=== PATIENT | male | born 1995 | race Caucasian/White ===

== ENCOUNTER → 2019-02-18 08:01 | Outpatient (CLI) | payer OTHER, MEDICAID, SELFPAY ==
[2019-02-18 08:55] LABS: Add Manual Diff / Slide Review NO; Basophils Absolute Auto 0 /uL (0-100); Basophils Percent Auto 0.6 % (0-2); Eosinophils Absolute Auto 200 /uL (0-450); Eosinophils Percent Auto 2.6 % (2-4); Hematocrit 42.4 % (41-53); Hemoglobin 14.7 g/dL (13.5-17.5); Lymphocytes Absolute Auto 3000 /uL (1100-4500); Lymphocytes Percent Auto 48.8 % (25-40); Mean Corpuscular HGB Conc 34.6 % (30-36); Mean Corpuscular Volume 86.6 fL (80-100); Monocytes Absolute Auto 500 /uL (0-900); Neutrophils Absolute Auto 2400 /uL (1500-7000); Platelet Count 296 X10^3/uL (150-400); Red Cell Distribution Width 12.7 % (11.6-14.8); White Blood Cell Count 6.1 X10^3/uL (4.5-11.0)
[2019-02-18 09:05] LABS: Alanine Aminotransferase 18 IU/L (21-72); Albumin 4.4 g/dL (3.5-5.0); Albumin Globulin Ratio 1.6 (1.0-2.8); Alkaline Phosphatase 62 U/L (38-126); Aspartate Aminotransferase 20 IU/L (17-59); BUN Creatinine Ratio 18.6 (6-22); Bilirubin Total 0.3 mg/dL (0.2-1.3); Blood Urea Nitrogen 13 mg/dL (9-20); Carbon Dioxide 29 mmol/L (22-32); Chloride 101 mmol/L (98-107); Cholesterol 184 mg/dL (140-199); Estimated Glomerular Filt Rate > 60.0 mL/min (>60); Globulin 2.7 g/dL (1.7-4.1); Glucose 92 mg/dL (70-100); HDL Cholesterol 41 mg/dL (40-60); HEMOLYSIS < 15 (0-50); LDL Cholesterol Calculated 113 mg/dL (<100); Potassium 4.6 mmol/L (3.4-5.1); Sodium 138 mmol/L (137-145); Total Protein 7.1 g/dL (6.3-8.2); Triglycerides 150 mg/dL (35-150)
[2019-02-18 09:48] LABS: TSH w/ Reflex to FT4 3.16 uIU/mL (0.47-4.68)
== END ==
PROVIDERS: PCP Nurse Practitioner; Visit Provider Nurse Practitioner
DX: Z01.89 Encounter for other specified special examinations (principal)
CPT/HCPCS: 36415; 80053; 80061; 84443; 85025

== ENCOUNTER → 2019-03-25 11:04 | Outpatient (CLI) | payer OTHER, MEDICAID, SELFPAY ==
--- NOTE | 2019-03-25 11:08 | DI.RAD.S_ITS ---
PROCEDURE: XR HIP W PEL IF DONE RT 2V INDICATIONS: hip pain TECHNIQUE: AP pelvis with lateral view(s) of the right hip(s). COMPARISON: None. FINDINGS: Bones: No fractures or dislocations. Pelvic ring appears intact. No suspicious bony lesions. Soft tissues: The visualized bowel gas pattern is normal. No suspicious soft tissue calcifications. IMPRESSION: No acute radiographic findings. If pain persists, further characterization with cross-sectional imaging such as CT or MRI could be used. Dictated by: Coretta Malagon M.D. on 03/25/2019 at 11:50 Approved by: Coretta Malagon M.D. on 03/25/2019 at 11:50
== END ==
LOC: LAB 11:07 → RAD 13:25 → LAB 13:28
PROVIDERS: PCP Nurse Practitioner; Visit Provider Nurse Practitioner
DX: G89.29 Other chronic pain (principal); M25.551 Pain in right hip
CPT/HCPCS: 73502

== ENCOUNTER → 2019-04-04 16:49 | Outpatient (CLI) | payer OTHER, MEDICAID, SELFPAY ==
--- NOTE | 2019-04-04 16:52 | DI.RAD.S_ITS ---
PROCEDURE: XR WRIST LT MIN 3V INDICATIONS: history of left wrist fracture TECHNIQUE: 4 views of the wrist were acquired. COMPARISON: None. FINDINGS: Bones: No fractures or dislocations. No suspicious bony lesions. There is mild sclerosis in the distal radius which could represent radiographic healing. Scaphoid view: No definite fracture seen. Soft tissues: No suspicious soft tissue calcifications. IMPRESSION: Focal sclerosis seen in the distal radius may represent radiographic healing. Elsewhere, no definite or displaced fracture radiographically identified, although if there are prior comparison studies, these would be helpful if obtainable. Dictated by: Carl Melendez M.D. on 04/05/2019 at 11:38 Approved by: Carl Melendez M.D. on 04/05/2019 at 11:40
--- NOTE | 2019-04-04 16:52 | DI.RAD.S_ITS ---
PROCEDURE: XR ANKLE RT MIN 3V INDICATIONS: history of right ankle fracture TECHNIQUE: 3 views of the ankle were acquired. COMPARISON: [facility], , ANKLE 3 VIEWS RIGHT, 11/03/2013, 13:27. FINDINGS: Bones: No acute fractures or dislocations. Ankle mortise is normally aligned. No suspicious bony lesions. Chronic corticated ossicle projects adjacent to the medial malleolar tip. There is also chronic appearing probable remote fracture fragment or dystrophic calcification projecting dorsal to the talar head. Soft tissues: No tibiotalar joint effusion. Achilles tendon appears normal. IMPRESSION: Corticated ossicle projecting adjacent to the medial malleolar tip probably remote fracture fragment. Additional sub-5 mm presumed avulsion fracture fragment projecting dorsal to the distal talus. This also appears chronic If the patient's pain or other symptoms persist, consider further evaluation with MRI Dictated by: Carl Melendez M.D. on 04/05/2019 at 11:23 Approved by: Carl Melendez M.D. on 04/05/2019 at 11:25
== END ==
PROVIDERS: PCP Nurse Practitioner; Visit Provider Nurse Practitioner
DX: Z87.81 Personal history of (healed) traumatic fracture (principal)
CPT/HCPCS: 73110; 73610

== ENCOUNTER 2019-04-19 17:30 | Outpatient (RCR) | payer OTHER, MEDICAID, SELFPAY ==
--- NOTE | 2019-02-27 14:00 | PT.OIE ---
Current Diagnoses Pain in left wrist (02/27/19) Pain in right hip (02/27/19) Pain in right ankle and joints of right foot (02/27/19) Stiffness of left wrist, not elsewhere classified (02/27/19) Stiffness of right ankle, not elsewhere classified (02/27/19) Muscle weakness (generalized) (02/27/19) Other abnormalities of gait and mobility (02/27/19) Provider Visit Care Team Role Provider Type LOW Resendiz Attending Provider Advanced Entry Tech Primary Care Provider Specialty: [facility] Address: [address] [place] [address] Email: Physical Therapy Initial Evaluation PT-OP-A Visit Information Start: 02/27/19 10:33 Freq: Status: Active Protocol: Document 02/27/19 09:45 DCW (Rec: 02/27/19 11:13 DCW [id number]) Out-Patient Physical Therapy Visit Information Visit Information Visit Type Initial Evaluation Visit Start Time 09:45 Visit Stop Time 10:30 Total Visit Minutes 45 Visit Number 1 Number of CLEAN UP SUPERVISOR Visits 0 Evaluation Information Evaluation Date 02/27/19 PT-OP-B Current Condition Start: 02/27/19 10:33 Freq: Status: Active Protocol: Document 02/27/19 09:45 DCW (Rec: 02/27/19 14:00 DCW [id number]) Current Condition History of Current Condition Onset Date Long-standing history Current Complaints L wrist pain, R ankle pain, R hip pain History of Current Condition Pt is a 23 year old male presenting with a complicated injury history at multiple sites. Pt has broken his left wrist 5-6 times, the most recent being three years ago. Pt notes most of his injuries occurred during sports like skateboarding and snowboarding . Pt notes that he now has pain in his wrst at end-range flexion or extension, and he is unable to put weight through his left arm, which makes him unable to perform a push-up, and he has difficulty with many yoga poses. Additionally, approximately six years ago, pt fractured a metatarsal in his right foot. 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 Pt notes that then prior to leaving [place], he got a small cut on his heel, which then led to a MRSA infection, which also adds to his ankle and foot pain. Pt notes that his ankle limits his ability to perform any sort of backflips, which he used to do for fun, and limits his jogging to less than one mile. His ankle pain has also led to hip pain, as he feels his gait pattern has changed, resulting in compensatory hip movements. Treatment Goals Patient/Caregiver Goals Pt would like to retun to pain -free activities, such as yoga , jogging, push-ups, and back- flips. Prior Functional Status Baseline Function- ADL's Independent Baseline Function- Mobility Independent PT-OP-C Subjective Start: 02/27/19 10:33 Freq: Status: Active Protocol: Document 02/27/19 09:45 DCW (Rec: 02/27/19 11:13 DCW [id number]) OP-PT Subjective Patient Comments Patient Comments All these injuries are just making me feel older than what I should. Patient Reported Progress Worse OP-PT Pain Assessment Pain Assessment Grid Paper Pain Assessment Grid Completed Yes Location Right Lateral Hip Intensity 6 Scale Used Numeric (1 - 10) Pain Aggravating Factors Exercise Walking Right Ankle Intensity 6 Scale Used Numeric (1 - 10) Description Aching Throbbing Pain Aggravating Factors Exercise Walking Left wrist Intensity 5 Scale Used Numeric (1 - 10) Description Chronic Tightness Throbbing Other Pain Aggravating Factors Weight-bearing through UE PT-OP-F Manual Assessment Start: 02/27/19 10:33 Freq: Status: Active Protocol: Document 02/27/19 09:45 DCW (Rec: 02/27/19 11:13 DCW [id number]) Manual Assessments Soft Tissue Assessment Soft Tissue Mobility Assessment Moderate tightness right lateral gastroc, Severe tightness R ITB Joint Mobility Assessment Joint Mobility Assessment Tenderness to palpation along left wrist, specifically dorsal surface of lunate, as well as pain with weight- bearing through left hand PT-OP-G Mobility & Gait Start: 02/27/19 10:33 Freq: Status: Active Protocol: Document 02/27/19 09:45 DCW (Rec: 02/27/19 11:13 DCW [id number]) OP Gait Assessment Gait Gait Assistance Required: Independent Assistive Devices Assistive Device None Factors Limiting Gait Function Factors Limiting Gait Function Abnormal Tonal Influences Decreased Strength Comments Gait Comments Pt ambulates with 30? right toe out secondary to overall R hip weakness, with exception of external rotators, as well as difficulty with R foot clearance secondary to limitations with dorsiflexion PT-OP-J Posture/Palpation/Skin Start: 02/27/19 10:33 Freq: Status: Active Protocol: Document 02/27/19 09:45 DCW (Rec: 02/27/19 11:13 DCW [id number]) Palpation Assessment Location Two Palpation Location Right Lateral Gastroc Palpation Findings Soft Tissue Tightness Spasm Muscle Guarding Tenderness Trigger Point One Palpation Location Right ITB Palpation Findings Soft Tissue Tightness Muscle Guarding Tenderness Trigger Point PT-OP-K Range of Motion Start: 02/27/19 10:33 Freq: Status: Active Protocol: Document 02/27/19 09:45 DCW (Rec: 02/27/19 11:13 DCW [id number]) Wrist Goniometric Range of Motion Wrist Left Flexion Active (degrees) 70 Extension Active (degrees) 65 Ulnar Deviation Active (degrees) 25 Radial Deviation Active (degrees) 13 ROM Limitations Wrist Limitations of Range of Motion Bony Restriction Comments Pain with end-range flexion and extension Hip Goniometric Range of Motion Hip Bilateral Hip ROM WFL Yes Knee Goniometric Range of Motion Knee Bilateral Knee ROM WFL Yes Ankle and Foot Goniometric Range of Motion Ankle and Foot Right Active Testing Position Sitting Plantarflexion 48 Inversion 40 Eversion 10 Left Active Ankle/Foot ROM WFL Yes Testing Position Sitting Dorsiflexion with Knee Flexed 10 Plantarflexion 60 Inversion 50 Eversion 23 Ankle and Foot ROM Limitations Comments R AROM DF /c knee bent: -5?; PROM 15? PT-OP-L Special Tests Start: 02/27/19 10:33 Freq: Status: Active Protocol: Document 02/27/19 09:45 DCW (Rec: 02/27/19 11:13 DCW [id number]) Special Tests Hip Special Tests Amandeep Test Results J-sign R ANA M Test Results Negative Scour Test Test Results Negative Knee Special Tests Rudolph's Test Test Results Strongly positive R Foot/Ankle Special Tests Anterior Draw Test Results Positive R PT-OP-M Strength Start: 02/27/19 10:33 Freq: Status: Active Protocol: Document 02/27/19 09:45 DCW (Rec: 02/27/19 11:13 DCW [id number]) Wrist Strength Wrist Manual Muscle Testing Left Flexion (C7) 4+ Good+ Extension (C6) 4+ Good+ Ulnar Deviation 4 Good Radial Deviation 4 Good Hip Strength Hip Manual Muscle Testing Right Flexion (L2) 4- Good- Abduction 4- Good- Adduction 4- Good- External Rotation 4+ Good+ Internal Rotation 4- Good- Left Flexion (L2) 4+ Good+ Extension (S1) 4+ Good+ Abduction 4+ Good+ Adduction 4+ Good+ External Rotation 4+ Good+ Internal Rotation 4+ Good+ Knee Strength Knee Manual Muscle Testing Bilateral Flexion (S2) 4+ Good+ Extension (L3) 4+ Good+ Ankle/Foot Strength Ankle and Foot Manual Muscle Testing Bilateral Dorsiflexion (L4) 4+ Good+ Plantarflexion (S1) 4+ Good+ Inversion 4+ Good+ Eversion (S1) 4+ Good+ PT-OP-T Assessment and Plan Start: 02/27/19 10:33 Freq: Status: Active Protocol: Document 02/27/19 09:45 DCW (Rec: 02/27/19 11:13 DCW [id number]) Physical Therapy Assessment Rehab Potential Rehabilitation Potential Good Evaluation Complexity Number of Personal Factors/Comorbidities 3 or More Number of Body Systems Impaired 4 or More Clinical Presentation at Evaluation Evolving Impairments Impairments Functional Activities Functional Mobility Gait Pain ROM Soft Tissue Mobility Strength Tone Goals Five Impairment Limited ankle ROM Night Auditor Goal (LTG) Pt to increased right Dorsiflexion from lacking 5? from neutral to 10? to improve quality of swing phase of gait LTG Duration 04/29/19 Four Impairment Right hip weakness Half-Way Goal (LTG) Pt right hip MMT to at least 4 +/5 LTG Duration 04/29/19 Three Impairment Pt unable to jog more than one mile due to hip pain STG Duration 03/29/19 Night Auditor Goal (LTG) Pt to jog three miles with no increased hip pain LTG Duration 04/29/19 Two Impairment Pt unable to bear weight through his left wrist Short Term Goal (STG) Pt to tolerate five push-ups without increased wrist pain STG Duration 03/29/19 Half-Way Goal (LTG) Pt to participate in a full yoga session without being limited by his wrist LTG Duration 04/29/19 One Impairment Pt does not have an appropriate home exercise program Short Term Goal (STG) Pt to be independent and complaint with an appropriate HEP STG Duration 03/29/19 Assessment Summary Assessment Pt presents with a multitude of complaints from various orthopedic injuries in hi past . Pt's left wrist has limited ROM and causes pain with and weight-bearing activities, his right ankle displays increased laxity in his ATF ligament and limited ROM. Pt's right hip is substantially weaker than his left, resulting in increased right toe-out, and a tight ITB is causing increased pain with palpation and popping during ambulation. Pt overall is a very active individual, and his injuries are limiting his participation in his normal activities, such has skateboarding, snowboarding, yoga, and jogging. Pt should benefit from skilled therapy focusing on improving hip strength, ankle ROM, wrist mobility, decreasing ITB tightness, improving gait pattern, and decreasing pain with UE weight bearing. With pt's right ankle laxity, if he does not respond well to skilled PT, he may benefit from an MRI in the future to assess integrity of his R ATF ligament Physical Therapy Plan Frequency and Duration Frequency of Treatment 2x/Week Duration of Treatment 10 weeks Plan of Care Start Date 02/27/19 Plan of Care End Date 05/08/19 Therapeutic Interventions Therapeutic Interventions Aquatic Therapy Balance Training Gait Training Home Exercise Program Joint Mobilizations Modalities Cold Pack/Ice Massage Electric Stimulation Hot Packs Ultrasound Next Visit Focus/Plan Next Note Type Treatment Note Next Visit Plan Hip strengthening, ankle ROM, wrist ROM, STM to R gastroc
--- NOTE | 2019-03-01 10:29 | PT.OTN ---
Current Diagnoses Pain in left wrist (03/01/19) Pain in right hip (03/01/19) Pain in right ankle and joints of right foot (03/01/19) Stiffness of left wrist, not elsewhere classified (03/01/19) Stiffness of right ankle, not elsewhere classified (03/01/19) Muscle weakness (generalized) (03/01/19) Other abnormalities of gait and mobility (03/01/19) Physical Therapy Treatment Note PT-OP-A Visit Information Start: 02/27/19 10:33 Freq: Status: Active Protocol: Document 03/01/19 09:45 DCW (Rec: 03/01/19 10:29 DCW [id number]) Out-Patient Physical Therapy Visit Information Visit Information Visit Type Treatment Note Visit Start Time 09:45 Visit Stop Time 10:30 Total Visit Minutes 45 Visit Number 2 Number of INJECTION MOLDING OPERATOR Visits 0 Evaluation Information Evaluation Date 02/27/19 PT-OP-B Current Condition Start: 02/27/19 10:33 Freq: Status: Active Protocol: Document 02/27/19 09:45 DCW (Rec: 02/27/19 14:00 DCW [id number]) Current Condition History of Current Condition Onset Date Long-standing history Current Complaints L wrist pain, R ankle pain, R hip pain History of Current Condition Pt is a 23 year old male presenting with a complicated injury history at multiple sites. Pt has broken his left wrist 5-6 times, the most recent being three years ago. Pt notes most of his injuries occurred during sports like skateboarding and snowboarding . Pt notes that he now has pain in his wrst at end-range flexion or extension, and he is unable to put weight through his left arm, which makes him unable to perform a push-up, and he has difficulty with many yoga poses. Additionally, approximately six years ago, pt fractured a metatarsal in his right foot. 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 Pt notes that then prior to leaving [place], he got a small cut on his heel, which then led to a MRSA infection, which also adds to his ankle and foot pain. Pt notes that his ankle limits his ability to perform any sort of backflips, which he used to do for fun, and limits his jogging to less than one mile. His ankle pain has also led to hip pain, as he feels his gait pattern has changed, resulting in compensatory hip movements. Treatment Goals Patient/Caregiver Goals Pt would like to retun to pain -free activities, such as yoga , jogging, push-ups, and back- flips. Prior Functional Status Baseline Function- ADL's Independent Baseline Function- Mobility Independent PT-OP-C Subjective Start: 02/27/19 10:33 Freq: Status: Active Protocol: Document 03/01/19 09:45 DCW (Rec: 03/01/19 10:29 DCW [id number]) OP-PT Subjective Patient Comments Patient Comments Pt notes he is a little sore today following hiking yesterday. PT-OP-F Manual Assessment Start: 02/27/19 10:33 Freq: Status: Active Protocol: Document 02/27/19 09:45 DCW (Rec: 02/27/19 11:13 DCW [id number]) Manual Assessments Soft Tissue Assessment Soft Tissue Mobility Assessment Moderate tightness right lateral gastroc, Severe tightness R ITB Joint Mobility Assessment Joint Mobility Assessment Tenderness to palpation along left wrist, specifically dorsal surface of lunate, as well as pain with weight- bearing through left hand PT-OP-G Mobility & Gait Start: 02/27/19 10:33 Freq: Status: Active Protocol: Document 02/27/19 09:45 DCW (Rec: 02/27/19 11:13 DCW [id number]) OP Gait Assessment Gait Gait Assistance Required: Independent Assistive Devices Assistive Device None Factors Limiting Gait Function Factors Limiting Gait Function Abnormal Tonal Influences Decreased Strength Comments Gait Comments Pt ambulates with 30? right toe out secondary to overall R hip weakness, with exception of external rotators, as well as difficulty with R foot clearance secondary to limitations with dorsiflexion PT-OP-J Posture/Palpation/Skin Start: 02/27/19 10:33 Freq: Status: Active Protocol: Document 02/27/19 09:45 DCW (Rec: 02/27/19 11:13 DCW [id number]) Palpation Assessment Location Two Palpation Location Right Lateral Gastroc Palpation Findings Soft Tissue Tightness Spasm Muscle Guarding Tenderness Trigger Point One Palpation Location Right ITB Palpation Findings Soft Tissue Tightness Muscle Guarding Tenderness Trigger Point PT-OP-K Range of Motion Start: 02/27/19 10:33 Freq: Status: Active Protocol: Document 02/27/19 09:45 DCW (Rec: 02/27/19 11:13 DCW [id number]) Wrist Goniometric Range of Motion Wrist Left Flexion Active (degrees) 70 Extension Active (degrees) 65 Ulnar Deviation Active (degrees) 25 Radial Deviation Active (degrees) 13 ROM Limitations Wrist Limitations of Range of Motion Bony Restriction Comments Pain with end-range flexion and extension Hip Goniometric Range of Motion Hip Bilateral Hip ROM WFL Yes Knee Goniometric Range of Motion Knee Bilateral Knee ROM WFL Yes Ankle and Foot Goniometric Range of Motion Ankle and Foot Right Active Testing Position Sitting Plantarflexion 48 Inversion 40 Eversion 10 Left Active Ankle/Foot ROM WFL Yes Testing Position Sitting Dorsiflexion with Knee Flexed 10 Plantarflexion 60 Inversion 50 Eversion 23 Ankle and Foot ROM Limitations Comments R AROM DF /c knee bent: -5?; PROM 15? PT-OP-L Special Tests Start: 02/27/19 10:33 Freq: Status: Active Protocol: Document 02/27/19 09:45 DCW (Rec: 02/27/19 11:13 DCW [id number]) Special Tests Hip Special Tests Amandeep Test Results J-sign R ANA M Test Results Negative Scour Test Test Results Negative Knee Special Tests Rudolph's Test Test Results Strongly positive R Foot/Ankle Special Tests Anterior Draw Test Results Positive R PT-OP-M Strength Start: 02/27/19 10:33 Freq: Status: Active Protocol: Document 02/27/19 09:45 DCW (Rec: 02/27/19 11:13 DCW [id number]) Wrist Strength Wrist Manual Muscle Testing Left Flexion (C7) 4+ Good+ Extension (C6) 4+ Good+ Ulnar Deviation 4 Good Radial Deviation 4 Good Hip Strength Hip Manual Muscle Testing Right Flexion (L2) 4- Good- Abduction 4- Good- Adduction 4- Good- External Rotation 4+ Good+ Internal Rotation 4- Good- Left Flexion (L2) 4+ Good+ Extension (S1) 4+ Good+ Abduction 4+ Good+ Adduction 4+ Good+ External Rotation 4+ Good+ Internal Rotation 4+ Good+ Knee Strength Knee Manual Muscle Testing Bilateral Flexion (S2) 4+ Good+ Extension (L3) 4+ Good+ Ankle/Foot Strength Ankle and Foot Manual Muscle Testing Bilateral Dorsiflexion (L4) 4+ Good+ Plantarflexion (S1) 4+ Good+ Inversion 4+ Good+ Eversion (S1) 4+ Good+ PT-OP-Q Treatments Start: 02/27/19 10:33 Freq: Status: Active Protocol: Document 03/01/19 09:45 DCW (Rec: 03/01/19 10:29 DCW [id number]) Gym Equipment Therapeutic Ball Bridging /c HS curls Exercise Details Bridging /c HS curls with feet on ball Ball Size/Color Red - 55 cm Body Position Supine Therapeutic Exercises Supine Exercises Psoas Stretch Supine Exercise Name Leg off table Side right Piriformis Stretch Supine Exercise Name Figure-4, [id number] shoulder Side right ITB Stretch Supine Exercise Name ITB Stretch /c Strap Side right Equipment Used Strap Sitting Exercises Piriformis Stretch Sitting Exercise Name Seated Figure-4 stretch 4-way wrist flexion Sitting Exercise Name 4-way wrist flexion Side left Resistance Lv 3 Equipment Used T-band Forearm Supination/Pronation Sitting Exercise Name Pronation, Supination Side left Equipment Used Hammer Standing Exercises BAPS Standing Exercise Name BAPS DF/PF, Inv/Ev, CW/CCW Side right Resistance Lv 4 Manual Therapy Treatment Soft Tissue Mobilization Lateral R Gastroc Body Location R Gastroc Mobilization Type Strumming Sustained Pressure Trigger Point Release Intensity/Depth Deep Body Position Hooklying Joint Mobilizations Wrist Joint L Wrist Direction Radial/Ulnar Grade III Body Position Sitting PT-OP-T Assessment and Plan Start: 02/27/19 10:33 Freq: Status: Active Protocol: Document 03/01/19 09:45 DCW (Rec: 03/01/19 10:29 DCW [id number]) Physical Therapy Assessment Impairments Impairments Functional Activities Functional Mobility Gait Pain ROM Soft Tissue Mobility Strength Tone Goals Five Impairment Limited ankle ROM Podiatry Doctor Goal (LTG) Pt to increased right Dorsiflexion from lacking 5? from neutral to 10? to improve quality of swing phase of gait LTG Duration 04/29/19 Four Impairment Right hip weakness Snf Goal (LTG) Pt right hip MMT to at least 4 +/5 LTG Duration 04/29/19 Three Impairment Pt unable to jog more than one mile due to hip pain STG Duration 03/29/19 Snf Goal (LTG) Pt to jog three miles with no increased hip pain LTG Duration 04/29/19 Two Impairment Pt unable to bear weight through his left wrist Short Term Goal (STG) Pt to tolerate five push-ups without increased wrist pain STG Duration 03/29/19 Podiatry Doctor Goal (LTG) Pt to participate in a full yoga session without being limited by his wrist LTG Duration 04/29/19 One Impairment Pt does not have an appropriate home exercise program Short Term Goal (STG) Pt to be independent and complaint with an appropriate HEP STG Duration 03/29/19 Assessment Summary Assessment Pt tolerated treatment very well today, receptive to HEP exercises and motivated to improve his pain and functional mobility. Physical Therapy Plan Frequency and Duration Frequency of Treatment 2x/Week Duration of Treatment 10 weeks Plan of Care Start Date 02/27/19 Plan of Care End Date 05/08/19 Therapeutic Interventions Therapeutic Interventions Aquatic Therapy Balance Training Gait Training Home Exercise Program Joint Mobilizations Modalities Cold Pack/Ice Massage Electric Stimulation Hot Packs Ultrasound Next Visit Focus/Plan Next Note Type Treatment Note Next Visit Plan Hip strengthening, ankle ROM, wrist ROM, STM to R gastroc
--- NOTE | 2019-03-07 17:46 | PT.OTN ---
Current Diagnoses Pain in left wrist (03/07/19) Pain in right hip (03/07/19) Pain in right ankle and joints of right foot (03/07/19) Stiffness of left wrist, not elsewhere classified (03/07/19) Stiffness of right ankle, not elsewhere classified (03/07/19) Muscle weakness (generalized) (03/07/19) Other abnormalities of gait and mobility (03/07/19) Physical Therapy Treatment Note PT-OP-A Visit Information Start: 02/27/19 10:33 Freq: Status: Active Protocol: Document 03/07/19 09:45 AMB (Rec: 03/07/19 17:46 AMB [email or web address]) Out-Patient Physical Therapy Visit Information Visit Information Visit Type Treatment Note Visit Start Time 09:50 Visit Stop Time 10:30 Total Visit Minutes 40 Visit Number 3 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 Pt has broken his left wrist 5-6 times, the most recent being three years ago. Pt notes most of his injuries occurred during sports like skateboarding and snowboarding . Pt notes that he now has pain in his wrst at end-range flexion or extension, and he is unable to put weight through his left arm, which makes him unable to perform a push-up, and he has difficulty with many yoga poses. Additionally, approximately six years ago, pt fractured a metatarsal in his right foot. 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 Pt notes that then prior to leaving [place], he got a small cut on his heel, which then led to a MRSA infection, which also adds to his ankle and foot pain. Pt notes that his ankle limits his ability to perform any sort of backflips, which he used to do for fun, and limits his jogging to less than one mile. His ankle pain has also led to hip pain, as he feels his gait pattern has changed, resulting in compensatory hip movements. Treatment Goals Patient/Caregiver Goals Pt would like to retun to pain -free activities, such as yoga , jogging, push-ups, and back- flips. Prior Functional Status Baseline Function- ADL's Independent Baseline Function- Mobility Independent PT-OP-C Subjective Start: 02/27/19 10:33 Freq: Status: Active Protocol: Document 03/07/19 09:45 AMB (Rec: 03/07/19 17:46 AMB [email or web address]) OP-PT Subjective Patient Comments Patient Comments Gurjit notes he is usually a little sore but does not feel that his HEP increased his soreness at all. PT-OP-F Manual Assessment Start: 02/27/19 10:33 Freq: Status: Active Protocol: Document 02/27/19 09:45 DCW (Rec: 02/27/19 11:13 DCW [id number]) Manual Assessments Soft Tissue Assessment Soft Tissue Mobility Assessment Moderate tightness right lateral gastroc, Severe tightness R ITB Joint Mobility Assessment Joint Mobility Assessment Tenderness to palpation along left wrist, specifically dorsal surface of lunate, as well as pain with weight- bearing through left hand PT-OP-G Mobility & Gait Start: 02/27/19 10:33 Freq: Status: Active Protocol: Document 02/27/19 09:45 DCW (Rec: 02/27/19 11:13 DCW [id number]) OP Gait Assessment Gait Gait Assistance Required: Independent Assistive Devices Assistive Device None Factors Limiting Gait Function Factors Limiting Gait Function Abnormal Tonal Influences Decreased Strength Comments Gait Comments Pt ambulates with 30? right toe out secondary to overall R hip weakness, with exception of external rotators, as well as difficulty with R foot clearance secondary to limitations with dorsiflexion PT-OP-J Posture/Palpation/Skin Start: 02/27/19 10:33 Freq: Status: Active Protocol: Document 02/27/19 09:45 DCW (Rec: 02/27/19 11:13 DCW [id number]) Palpation Assessment Location Two Palpation Location Right Lateral Gastroc Palpation Findings Soft Tissue Tightness Spasm Muscle Guarding Tenderness Trigger Point One Palpation Location Right ITB Palpation Findings Soft Tissue Tightness Muscle Guarding Tenderness Trigger Point PT-OP-K Range of Motion Start: 02/27/19 10:33 Freq: Status: Active Protocol: Document 02/27/19 09:45 DCW (Rec: 02/27/19 11:13 DCW [id number]) Wrist Goniometric Range of Motion Wrist Left Flexion Active (degrees) 70 Extension Active (degrees) 65 Ulnar Deviation Active (degrees) 25 Radial Deviation Active (degrees) 13 ROM Limitations Wrist Limitations of Range of Motion Bony Restriction Comments Pain with end-range flexion and extension Hip Goniometric Range of Motion Hip Bilateral Hip ROM WFL Yes Knee Goniometric Range of Motion Knee Bilateral Knee ROM WFL Yes Ankle and Foot Goniometric Range of Motion Ankle and Foot Right Active Testing Position Sitting Plantarflexion 48 Inversion 40 Eversion 10 Left Active Ankle/Foot ROM WFL Yes Testing Position Sitting Dorsiflexion with Knee Flexed 10 Plantarflexion 60 Inversion 50 Eversion 23 Ankle and Foot ROM Limitations Comments R AROM DF /c knee bent: -5?; PROM 15? PT-OP-L Special Tests Start: 02/27/19 10:33 Freq: Status: Active Protocol: Document 02/27/19 09:45 DCW (Rec: 02/27/19 11:13 DCW [id number]) Special Tests Hip Special Tests Amandeep Test Results J-sign R ANA M Test Results Negative Scour Test Test Results Negative Knee Special Tests Rudolph's Test Test Results Strongly positive R Foot/Ankle Special Tests Anterior Draw Test Results Positive R PT-OP-M Strength Start: 02/27/19 10:33 Freq: Status: Active Protocol: Document 02/27/19 09:45 DCW (Rec: 02/27/19 11:13 DCW [id number]) Wrist Strength Wrist Manual Muscle Testing Left Flexion (C7) 4+ Good+ Extension (C6) 4+ Good+ Ulnar Deviation 4 Good Radial Deviation 4 Good Hip Strength Hip Manual Muscle Testing Right Flexion (L2) 4- Good- Abduction 4- Good- Adduction 4- Good- External Rotation 4+ Good+ Internal Rotation 4- Good- Left Flexion (L2) 4+ Good+ Extension (S1) 4+ Good+ Abduction 4+ Good+ Adduction 4+ Good+ External Rotation 4+ Good+ Internal Rotation 4+ Good+ Knee Strength Knee Manual Muscle Testing Bilateral Flexion (S2) 4+ Good+ Extension (L3) 4+ Good+ Ankle/Foot Strength Ankle and Foot Manual Muscle Testing Bilateral Dorsiflexion (L4) 4+ Good+ Plantarflexion (S1) 4+ Good+ Inversion 4+ Good+ Eversion (S1) 4+ Good+ PT-OP-Q Treatments Start: 02/27/19 10:33 Freq: Status: Active Protocol: Document 03/07/19 09:45 AMB (Rec: 03/07/19 17:46 AMB [email or web address]) Therapeutic Exercises Prone Exercises 1 Prone Exercise Name hip IR/ER AROM Reps/Minutes 15 Sidelying Exercises 2 Sidelying Exercise Name clamshell Reps/Minutes 10 Comments felt tight 1 Sidelying Exercise Name hip abd SLR Reps/Minutes 5 Comments increased pain Sitting Exercises 1 Sitting Exercise Name ankle eversion, inversion Resistance Lv 3 Reps/Minutes 10 4-way wrist flexion Sitting Exercise Name 4-way wrist flexion Side left Resistance Lv 3 Equipment Used T-band Forearm Supination/Pronation Sitting Exercise Name Pronation, Supination Side left Equipment Used Hammer Standing Exercises 2 Standing Exercise Name single leg balance Comments R- increased R hip pain 1 Standing Exercise Name wrist extension against wall Reps/Minutes 30 Comments to prep for wall pushup Manual Therapy Treatment Soft Tissue Mobilization Lateral R Gastroc Body Location R Gastroc Mobilization Type Strumming Sustained Pressure Trigger Point Release Intensity/Depth Deep Body Position Hooklying Joint Mobilizations Wrist Joint L Wrist Direction Radial/Ulnar/ PA Grade III Body Position Sitting Other Other Manual Treatments foam roll IT band PT-OP-T Assessment and Plan Start: 02/27/19 10:33 Freq: Status: Active Protocol: Document 03/07/19 09:45 AMB (Rec: 03/07/19 17:46 AMB [email or web address]) Physical Therapy Plan Next Visit Focus/Plan Next Note Type Treatment Note Next Visit Plan Hip strengthening, ankle ROM, wrist ROM, STM to R gastroc
--- NOTE | 2019-03-14 14:42 | PT.OTN ---
Current Diagnoses Pain in left wrist (03/14/19) Pain in right hip (03/14/19) Pain in right ankle and joints of right foot (03/14/19) Stiffness of left wrist, not elsewhere classified (03/14/19) Stiffness of right ankle, not elsewhere classified (03/14/19) Muscle weakness (generalized) (03/14/19) Other abnormalities of gait and mobility (03/14/19) Physical Therapy Treatment Note PT-OP-A Visit Information Start: 02/27/19 10:33 Freq: Status: Active Protocol: Document 03/14/19 14:33 SA (Rec: 03/14/19 14:42 SA [email or web address]) Out-Patient Physical Therapy Visit Information Visit Information Visit Type Treatment Note Visit Start Time 09:45 Visit Stop Time 10:31 Total Visit Minutes 46 Visit Number 4 Number of RETAIL BUYER Visits 1 PT-OP-B Current Condition Start: 02/27/19 10:33 Freq: Status: Active Protocol: Document 02/27/19 09:45 DCW (Rec: 02/27/19 14:00 DCW [id number]) Current Condition History of Current Condition Onset Date Long-standing history Current Complaints L wrist pain, R ankle pain, R hip pain History of Current Condition Pt is a 23 year old male presenting with a complicated injury history at multiple sites. Pt has broken his left wrist 5-6 times, the most recent being three years ago. Pt notes most of his injuries occurred during sports like skateboarding and snowboarding . Pt notes that he now has pain in his wrst at end-range flexion or extension, and he is unable to put weight through his left arm, which makes him unable to perform a push-up, and he has difficulty with many yoga poses. Additionally, approximately six years ago, pt fractured a metatarsal in his right foot. 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 Pt notes that then prior to leaving [place], he got a small cut on his heel, which then led to a MRSA infection, which also adds to his ankle and foot pain. Pt notes that his ankle limits his ability to perform any sort of backflips, which he used to do for fun, and limits his jogging to less than one mile. His ankle pain has also led to hip pain, as he feels his gait pattern has changed, resulting in compensatory hip movements. Treatment Goals Patient/Caregiver Goals Pt would like to retun to pain -free activities, such as yoga , jogging, push-ups, and back- flips. Prior Functional Status Baseline Function- ADL's Independent Baseline Function- Mobility Independent PT-OP-C Subjective Start: 02/27/19 10:33 Freq: Status: Active Protocol: Document 03/14/19 14:33 SA (Rec: 03/14/19 14:42 SA [email or web address]) OP-PT Subjective Patient Comments Patient Comments Pt reports he has a new job in [employer] [place] that will limit his availability for PT appts. Really wants to cont with PT though. PT-OP-F Manual Assessment Start: 02/27/19 10:33 Freq: Status: Active Protocol: Document 02/27/19 09:45 DCW (Rec: 02/27/19 11:13 DCW [id number]) Manual Assessments Soft Tissue Assessment Soft Tissue Mobility Assessment Moderate tightness right lateral gastroc, Severe tightness R ITB Joint Mobility Assessment Joint Mobility Assessment Tenderness to palpation along left wrist, specifically dorsal surface of lunate, as well as pain with weight- bearing through left hand PT-OP-G Mobility & Gait Start: 02/27/19 10:33 Freq: Status: Active Protocol: Document 02/27/19 09:45 DCW (Rec: 02/27/19 11:13 DCW [id number]) OP Gait Assessment Gait Gait Assistance Required: Independent Assistive Devices Assistive Device None Factors Limiting Gait Function Factors Limiting Gait Function Abnormal Tonal Influences Decreased Strength Comments Gait Comments Pt ambulates with 30? right toe out secondary to overall R hip weakness, with exception of external rotators, as well as difficulty with R foot clearance secondary to limitations with dorsiflexion PT-OP-J Posture/Palpation/Skin Start: 02/27/19 10:33 Freq: Status: Active Protocol: Document 02/27/19 09:45 DCW (Rec: 02/27/19 11:13 DCW [id number]) Palpation Assessment Location Two Palpation Location Right Lateral Gastroc Palpation Findings Soft Tissue Tightness Spasm Muscle Guarding Tenderness Trigger Point One Palpation Location Right ITB Palpation Findings Soft Tissue Tightness Muscle Guarding Tenderness Trigger Point PT-OP-K Range of Motion Start: 02/27/19 10:33 Freq: Status: Active Protocol: Document 02/27/19 09:45 DCW (Rec: 02/27/19 11:13 DCW [id number]) Wrist Goniometric Range of Motion Wrist Left Flexion Active (degrees) 70 Extension Active (degrees) 65 Ulnar Deviation Active (degrees) 25 Radial Deviation Active (degrees) 13 ROM Limitations Wrist Limitations of Range of Motion Bony Restriction Comments Pain with end-range flexion and extension Hip Goniometric Range of Motion Hip Bilateral Hip ROM WFL Yes Knee Goniometric Range of Motion Knee Bilateral Knee ROM WFL Yes Ankle and Foot Goniometric Range of Motion Ankle and Foot Right Active Testing Position Sitting Plantarflexion 48 Inversion 40 Eversion 10 Left Active Ankle/Foot ROM WFL Yes Testing Position Sitting Dorsiflexion with Knee Flexed 10 Plantarflexion 60 Inversion 50 Eversion 23 Ankle and Foot ROM Limitations Comments R AROM DF /c knee bent: -5?; PROM 15? PT-OP-L Special Tests Start: 02/27/19 10:33 Freq: Status: Active Protocol: Document 02/27/19 09:45 DCW (Rec: 02/27/19 11:13 DCW [id number]) Special Tests Hip Special Tests Amandeep Test Results J-sign R ANA M Test Results Negative Scour Test Test Results Negative Knee Special Tests Rudolph's Test Test Results Strongly positive R Foot/Ankle Special Tests Anterior Draw Test Results Positive R PT-OP-M Strength Start: 02/27/19 10:33 Freq: Status: Active Protocol: Document 02/27/19 09:45 DCW (Rec: 02/27/19 11:13 DCW [id number]) Wrist Strength Wrist Manual Muscle Testing Left Flexion (C7) 4+ Good+ Extension (C6) 4+ Good+ Ulnar Deviation 4 Good Radial Deviation 4 Good Hip Strength Hip Manual Muscle Testing Right Flexion (L2) 4- Good- Abduction 4- Good- Adduction 4- Good- External Rotation 4+ Good+ Internal Rotation 4- Good- Left Flexion (L2) 4+ Good+ Extension (S1) 4+ Good+ Abduction 4+ Good+ Adduction 4+ Good+ External Rotation 4+ Good+ Internal Rotation 4+ Good+ Knee Strength Knee Manual Muscle Testing Bilateral Flexion (S2) 4+ Good+ Extension (L3) 4+ Good+ Ankle/Foot Strength Ankle and Foot Manual Muscle Testing Bilateral Dorsiflexion (L4) 4+ Good+ Plantarflexion (S1) 4+ Good+ Inversion 4+ Good+ Eversion (S1) 4+ Good+ PT-OP-Q Treatments Start: 02/27/19 10:33 Freq: Status: Active Protocol: Document 03/14/19 14:33 (Rec: 03/14/19 14:42 [email or web address]) Therapeutic Exercises Supine Exercises Psoas Stretch Supine Exercise Name Leg off table Side right Piriformis Stretch Supine Exercise Name Figure-4, Hhed-py-gmppcuay shoulder Side right ITB Stretch Supine Exercise Name ITB Stretch /c Strap Side right Equipment Used Strap Prone Exercises 1 Prone Exercise Name hip IR/ER AROM Reps/Minutes 15 Sidelying Exercises 2 Sidelying Exercise Name clamshell Reps/Minutes 15 1 Sidelying Exercise Name hip abd SLR Reps/Minutes 10 Comments no pain Sitting Exercises 1 Sitting Exercise Name ankle eversion, inversion Resistance Lv 3 Reps/Minutes 10 Piriformis Stretch Sitting Exercise Name Seated Figure-4 stretch 4-way wrist flexion Sitting Exercise Name 4-way wrist flexion Side left Resistance Lv 3 Equipment Used T-band Forearm Supination/Pronation Sitting Exercise Name Pronation, Supination Side left Equipment Used Hammer Standing Exercises 1 Standing Exercise Name wrist extension against wall Reps/Minutes 30 Comments to prep for wall pushup Manual Therapy Treatment Soft Tissue Mobilization Lateral R Gastroc Body Location R Gastroc Mobilization Type Strumming Sustained Pressure Trigger Point Release Intensity/Depth Deep Body Position Hooklying Joint Mobilizations Wrist Joint L Wrist Direction Radial/Ulnar/ PA Grade III Body Position Sitting PT-OP-T Assessment and Plan Start: 02/27/19 10:33 Freq: Status: Active Protocol: Document 03/14/19 14:33 (Rec: 03/14/19 14:42 [email or web address]) Physical Therapy Assessment Assessment Summary Assessment Pt doing exercises at home, feels PT is helping. Provided pt with more extensive HEP and TB, pt to cont with HEP and schedule PT 1x/wk as able with new schedule. Physical Therapy Plan Next Visit Focus/Plan Next Note Type Treatment Note Next Visit Plan Hip strengthening, ankle ROM, wrist ROM, STM to R gastroc. Re-visit HEP and assess tolerance/progression.
--- NOTE | 2019-03-16 14:08 | PT.OTN ---
Current Diagnoses Pain in left wrist (03/16/19) Pain in right hip (03/16/19) Pain in right ankle and joints of right foot (03/16/19) Stiffness of left wrist, not elsewhere classified (03/16/19) Stiffness of right ankle, not elsewhere classified (03/16/19) Muscle weakness (generalized) (03/16/19) Other abnormalities of gait and mobility (03/16/19) Physical Therapy Treatment Note PT-OP-A Visit Information Start: 02/27/19 10:33 Freq: Status: Active Protocol: Document 03/16/19 10:31 LRN (Rec: 03/16/19 11:31 LRN [id number]) Out-Patient Physical Therapy Visit Information Visit Information Visit Type Treatment Note Visit Start Time 10:31 Visit Stop Time 11:20 Total Visit Minutes 49 Visit Number 5 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 Pt has broken his left wrist 5-6 times, the most recent being three years ago. Pt notes most of his injuries occurred during sports like skateboarding and snowboarding . Pt notes that he now has pain in his wrst at end-range flexion or extension, and he is unable to put weight through his left arm, which makes him unable to perform a push-up, and he has difficulty with many yoga poses. Additionally, approximately six years ago, pt fractured a metatarsal in his right foot. 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 Pt notes that then prior to leaving [place], he got a small cut on his heel, which then led to a MRSA infection, which also adds to his ankle and foot pain. Pt notes that his ankle limits his ability to perform any sort of backflips, which he used to do for fun, and limits his jogging to less than one mile. His ankle pain has also led to hip pain, as he feels his gait pattern has changed, resulting in compensatory hip movements. Treatment Goals Patient/Caregiver Goals Pt would like to retun to pain -free activities, such as yoga , jogging, push-ups, and back- flips. Prior Functional Status Baseline Function- ADL's Independent Baseline Function- Mobility Independent PT-OP-C Subjective Start: 02/27/19 10:33 Freq: Status: Active Protocol: Document 03/16/19 10:31 LRN (Rec: 03/16/19 11:31 LRN [id number]) OP-PT Subjective Patient Comments Patient Comments R ankle & hip pain is constant , L Wrist pain is constant. PT-OP-F Manual Assessment Start: 02/27/19 10:33 Freq: Status: Active Protocol: Document 02/27/19 09:45 DCW (Rec: 02/27/19 11:13 DCW [id number]) Manual Assessments Soft Tissue Assessment Soft Tissue Mobility Assessment Moderate tightness right lateral gastroc, Severe tightness R ITB Joint Mobility Assessment Joint Mobility Assessment Tenderness to palpation along left wrist, specifically dorsal surface of lunate, as well as pain with weight- bearing through left hand PT-OP-G Mobility & Gait Start: 02/27/19 10:33 Freq: Status: Active Protocol: Document 02/27/19 09:45 DCW (Rec: 02/27/19 11:13 DCW [id number]) OP Gait Assessment Gait Gait Assistance Required: Independent Assistive Devices Assistive Device None Factors Limiting Gait Function Factors Limiting Gait Function Abnormal Tonal Influences Decreased Strength Comments Gait Comments Pt ambulates with 30? right toe out secondary to overall R hip weakness, with exception of external rotators, as well as difficulty with R foot clearance secondary to limitations with dorsiflexion PT-OP-J Posture/Palpation/Skin Start: 02/27/19 10:33 Freq: Status: Active Protocol: Document 02/27/19 09:45 DCW (Rec: 02/27/19 11:13 DCW [id number]) Palpation Assessment Location Two Palpation Location Right Lateral Gastroc Palpation Findings Soft Tissue Tightness Spasm Muscle Guarding Tenderness Trigger Point One Palpation Location Right ITB Palpation Findings Soft Tissue Tightness Muscle Guarding Tenderness Trigger Point PT-OP-K Range of Motion Start: 02/27/19 10:33 Freq: Status: Active Protocol: Document 02/27/19 09:45 DCW (Rec: 02/27/19 11:13 DCW [id number]) Wrist Goniometric Range of Motion Wrist Left Flexion Active (degrees) 70 Extension Active (degrees) 65 Ulnar Deviation Active (degrees) 25 Radial Deviation Active (degrees) 13 ROM Limitations Wrist Limitations of Range of Motion Bony Restriction Comments Pain with end-range flexion and extension Hip Goniometric Range of Motion Hip Bilateral Hip ROM WFL Yes Knee Goniometric Range of Motion Knee Bilateral Knee ROM WFL Yes Ankle and Foot Goniometric Range of Motion Ankle and Foot Right Active Testing Position Sitting Plantarflexion 48 Inversion 40 Eversion 10 Left Active Ankle/Foot ROM WFL Yes Testing Position Sitting Dorsiflexion with Knee Flexed 10 Plantarflexion 60 Inversion 50 Eversion 23 Ankle and Foot ROM Limitations Comments R AROM DF /c knee bent: -5?; PROM 15? PT-OP-L Special Tests Start: 02/27/19 10:33 Freq: Status: Active Protocol: Document 02/27/19 09:45 DCW (Rec: 02/27/19 11:13 DCW [id number]) Special Tests Hip Special Tests Amandeep Test Results J-sign R ANA M Test Results Negative Scour Test Test Results Negative Knee Special Tests Rudolhp's Test Test Results Strongly positive R Foot/Ankle Special Tests Anterior Draw Test Results Positive R PT-OP-M Strength Start: 02/27/19 10:33 Freq: Status: Active Protocol: Document 02/27/19 09:45 DCW (Rec: 02/27/19 11:13 DCW [id number]) Wrist Strength Wrist Manual Muscle Testing Left Flexion (C7) 4+ Good+ Extension (C6) 4+ Good+ Ulnar Deviation 4 Good Radial Deviation 4 Good Hip Strength Hip Manual Muscle Testing Right Flexion (L2) 4- Good- Abduction 4- Good- Adduction 4- Good- External Rotation 4+ Good+ Internal Rotation 4- Good- Left Flexion (L2) 4+ Good+ Extension (S1) 4+ Good+ Abduction 4+ Good+ Adduction 4+ Good+ External Rotation 4+ Good+ Internal Rotation 4+ Good+ Knee Strength Knee Manual Muscle Testing Bilateral Flexion (S2) 4+ Good+ Extension (L3) 4+ Good+ Ankle/Foot Strength Ankle and Foot Manual Muscle Testing Bilateral Dorsiflexion (L4) 4+ Good+ Plantarflexion (S1) 4+ Good+ Inversion 4+ Good+ Eversion (S1) 4+ Good+ PT-OP-Q Treatments Start: 02/27/19 10:33 Freq: Status: Active Protocol: Document 03/16/19 10:31 LRN (Rec: 03/16/19 11:31 LRN [id number]) Gym Equipment Therapeutic Ball Bridging /c HS curls Exercise Details Bridging /c HS curls with feet on ball Ball Size/Color Green - same size as his ball at home. Body Position Supine Reps/Duration 15 x Therapeutic Exercises Supine Exercises Psoas Stretch Supine Exercise Name Leg off table Side right Comments Followed by active hip ext x 10 Piriformis Stretch Supine Exercise Name Figure-4, Hvcz-so-jqmajxxg shoulder Side right ITB Stretch Supine Exercise Name ITB Stretch /c Strap Side right Equipment Used Strap Sidelying Exercises 2 Sidelying Exercise Name clamshell Reps/Minutes 15 x 2 1 Sidelying Exercise Name hip abd SLR Reps/Minutes 10 Comments no pain Sitting Exercises 1 Sitting Exercise Name ankle eversion, inversion Resistance Lv 2 Reps/Minutes 15 x 2 Piriformis Stretch Sitting Exercise Name Seated Figure-4 stretch 4-way wrist flexion Sitting Exercise Name 4-way wrist flexion Side left Resistance Lv 2 Equipment Used T-band Reps/Minutes 15 x 2 Standing Exercises 1 Standing Exercise Name Wall push up Side left Reps/Minutes 4' Comments MWM for Medial glide hand on wrist Self-Care/Home Management Treatment Education Patient Education Pain Management Other Education Discussed use of pressure holds (MWM), L rotating hand on wrist. PT-OP-T Assessment and Plan Start: 02/27/19 10:33 Freq: Status: Active Protocol: Document 03/16/19 10:31 LRN (Rec: 03/16/19 11:31 LRN [id number]) Physical Therapy Assessment Assessment Summary Assessment Pt is doing well with ex's. He is starting a new job next week; therefore his last appt will be the next. Pt will need an independent HEP to be discharged to. Physical Therapy Plan Frequency and Duration Frequency of Treatment 2x/Week Duration of Treatment 10 weeks Plan of Care Start Date 02/27/19 Plan of Care End Date 05/08/19 Next Visit Focus/Plan Next Note Type Discharge Summary Next Visit Plan Reassess for DC and DC to independent HEP. Hip strengthening, ankle ROM, add closed chain wrist ROM and strengthening to HEP.
--- NOTE | 2019-03-22 17:40 | PT.OTN ---
Current Diagnoses Pain in left wrist (03/22/19) Pain in right hip (03/22/19) Pain in right ankle and joints of right foot (03/22/19) Stiffness of left wrist, not elsewhere classified (03/22/19) Stiffness of right ankle, not elsewhere classified (03/22/19) Muscle weakness (generalized) (03/22/19) Other abnormalities of gait and mobility (03/22/19) Physical Therapy Treatment Note PT-OP-A Visit Information Start: 02/27/19 10:33 Freq: Status: Active Protocol: Document 03/22/19 16:45 DCW (Rec: 03/22/19 17:40 DCW [id number]) Out-Patient Physical Therapy Visit Information Visit Information Visit Type Treatment Note Visit Start Time 16:45 Visit Stop Time 17:30 Total Visit Minutes 45 Visit Number 6 Number of PATIENT ADVOCATE Visits 0 Evaluation Information Evaluation Date 02/27/19 PT-OP-B Current Condition Start: 02/27/19 10:33 Freq: Status: Active Protocol: Document 02/27/19 09:45 DCW (Rec: 02/27/19 14:00 DCW [id number]) Current Condition History of Current Condition Onset Date Long-standing history Current Complaints L wrist pain, R ankle pain, R hip pain History of Current Condition Pt is a 23 year old male presenting with a complicated injury history at multiple sites. Pt has broken his left wrist 5-6 times, the most recent being three years ago. Pt notes most of his injuries occurred during sports like skateboarding and snowboarding . Pt notes that he now has pain in his wrst at end-range flexion or extension, and he is unable to put weight through his left arm, which makes him unable to perform a push-up, and he has difficulty with many yoga poses. Additionally, approximately six years ago, pt fractured a metatarsal in his right foot. 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 Pt notes that then prior to leaving [place], he got a small cut on his heel, which then led to a MRSA infection, which also adds to his ankle and foot pain. Pt notes that his ankle limits his ability to perform any sort of backflips, which he used to do for fun, and limits his jogging to less than one mile. His ankle pain has also led to hip pain, as he feels his gait pattern has changed, resulting in compensatory hip movements. Treatment Goals Patient/Caregiver Goals Pt would like to retun to pain -free activities, such as yoga , jogging, push-ups, and back- flips. Prior Functional Status Baseline Function- ADL's Independent Baseline Function- Mobility Independent PT-OP-C Subjective Start: 02/27/19 10:33 Freq: Status: Active Protocol: Document 03/22/19 16:45 DCW (Rec: 03/22/19 17:40 DCW [id number]) OP-PT Subjective Patient Comments Patient Comments Although pt was planning on discharging from therapy after today due to schedule changes , pt was able to get onto another therapist's 5:30 appointment slots, which he reports he will be able to make with his new job. PT-OP-F Manual Assessment Start: 02/27/19 10:33 Freq: Status: Active Protocol: Document 02/27/19 09:45 DCW (Rec: 02/27/19 11:13 DCW [id number]) Manual Assessments Soft Tissue Assessment Soft Tissue Mobility Assessment Moderate tightness right lateral gastroc, Severe tightness R ITB Joint Mobility Assessment Joint Mobility Assessment Tenderness to palpation along left wrist, specifically dorsal surface of lunate, as well as pain with weight- bearing through left hand PT-OP-G Mobility & Gait Start: 02/27/19 10:33 Freq: Status: Active Protocol: Document 02/27/19 09:45 DCW (Rec: 02/27/19 11:13 DCW [id number]) OP Gait Assessment Gait Gait Assistance Required: Independent Assistive Devices Assistive Device None Factors Limiting Gait Function Factors Limiting Gait Function Abnormal Tonal Influences Decreased Strength Comments Gait Comments Pt ambulates with 30? right toe out secondary to overall R hip weakness, with exception of external rotators, as well as difficulty with R foot clearance secondary to limitations with dorsiflexion PT-OP-J Posture/Palpation/Skin Start: 02/27/19 10:33 Freq: Status: Active Protocol: Document 02/27/19 09:45 DCW (Rec: 02/27/19 11:13 DCW [id number]) Palpation Assessment Location Two Palpation Location Right Lateral Gastroc Palpation Findings Soft Tissue Tightness Spasm Muscle Guarding Tenderness Trigger Point One Palpation Location Right ITB Palpation Findings Soft Tissue Tightness Muscle Guarding Tenderness Trigger Point PT-OP-K Range of Motion Start: 02/27/19 10:33 Freq: Status: Active Protocol: Document 02/27/19 09:45 DCW (Rec: 02/27/19 11:13 DCW [id number]) Wrist Goniometric Range of Motion Wrist Left Flexion Active (degrees) 70 Extension Active (degrees) 65 Ulnar Deviation Active (degrees) 25 Radial Deviation Active (degrees) 13 ROM Limitations Wrist Limitations of Range of Motion Bony Restriction Comments Pain with end-range flexion and extension Hip Goniometric Range of Motion Hip Bilateral Hip ROM WFL Yes Knee Goniometric Range of Motion Knee Bilateral Knee ROM WFL Yes Ankle and Foot Goniometric Range of Motion Ankle and Foot Right Active Testing Position Sitting Plantarflexion 48 Inversion 40 Eversion 10 Left Active Ankle/Foot ROM WFL Yes Testing Position Sitting Dorsiflexion with Knee Flexed 10 Plantarflexion 60 Inversion 50 Eversion 23 Ankle and Foot ROM Limitations Comments R AROM DF /c knee bent: -5?; PROM 15? PT-OP-L Special Tests Start: 02/27/19 10:33 Freq: Status: Active Protocol: Document 02/27/19 09:45 DCW (Rec: 02/27/19 11:13 DCW [id number]) Special Tests Hip Special Tests Amandeep Test Results J-sign R ANA M Test Results Negative Scour Test Test Results Negative Knee Special Tests Rudolph's Test Test Results Strongly positive R Foot/Ankle Special Tests Anterior Draw Test Results Positive R PT-OP-M Strength Start: 02/27/19 10:33 Freq: Status: Active Protocol: Document 02/27/19 09:45 DCW (Rec: 02/27/19 11:13 DCW [id number]) Wrist Strength Wrist Manual Muscle Testing Left Flexion (C7) 4+ Good+ Extension (C6) 4+ Good+ Ulnar Deviation 4 Good Radial Deviation 4 Good Hip Strength Hip Manual Muscle Testing Right Flexion (L2) 4- Good- Abduction 4- Good- Adduction 4- Good- External Rotation 4+ Good+ Internal Rotation 4- Good- Left Flexion (L2) 4+ Good+ Extension (S1) 4+ Good+ Abduction 4+ Good+ Adduction 4+ Good+ External Rotation 4+ Good+ Internal Rotation 4+ Good+ Knee Strength Knee Manual Muscle Testing Bilateral Flexion (S2) 4+ Good+ Extension (L3) 4+ Good+ Ankle/Foot Strength Ankle and Foot Manual Muscle Testing Bilateral Dorsiflexion (L4) 4+ Good+ Plantarflexion (S1) 4+ Good+ Inversion 4+ Good+ Eversion (S1) 4+ Good+ PT-OP-Q Treatments Start: 02/27/19 10:33 Freq: Status: Active Protocol: Document 03/22/19 16:45 DCW (Rec: 03/22/19 17:40 DCW [id number]) Gym Equipment Therapeutic Ball Bridging /c HS curls Exercise Details Bridging /c HS curls with feet on ball Ball Size/Color Green - 65 cm Body Position Supine Reps/Duration 15 x Therapeutic Exercises Supine Exercises Psoas Stretch Supine Exercise Name Leg off table Side right Piriformis Stretch Supine Exercise Name Figure-4, Wleu-cr-vavjjglz shoulder Side right ITB Stretch Supine Exercise Name ITB Stretch /c Strap Side right Equipment Used Strap Standing Exercises Resisted UE side-stepping Standing Exercise Name [place] on mat Resistance Green Equipment Used T-band Manual Therapy Treatment Soft Tissue Mobilization Psoas Body Location B Psoas Mobilization Type Strumming Sustained Pressure Intensity/Depth Deep Lateral R Gastroc Body Location R Gastroc Mobilization Type Strumming Sustained Pressure Trigger Point Release Intensity/Depth Deep Body Position Hooklying Joint Mobilizations Wrist Joint L Wrist Direction Radial/Ulnar/ PA Grade III Body Position Sitting PT-OP-T Assessment and Plan Start: 02/27/19 10:33 Freq: Status: Active Protocol: Document 03/22/19 16:45 DCW (Rec: 03/22/19 17:40 DCW [id number]) Physical Therapy Assessment Impairments Impairments Functional Activities Functional Mobility Gait Pain ROM Soft Tissue Mobility Strength Tone Goals Five Impairment Limited ankle ROM Telegraph Dispatcher Goal (LTG) Pt to increased right Dorsiflexion from lacking 5? from neutral to 10? to improve quality of swing phase of gait LTG Duration 04/29/19 Four Impairment Right hip weakness Care Home Goal (LTG) Pt right hip MMT to at least 4 +/5 LTG Duration 04/29/19 Three Impairment Pt unable to jog more than one mile due to hip pain STG Duration 03/29/19 Care Home Goal (LTG) Pt to jog three miles with no increased hip pain LTG Duration 04/29/19 Two Impairment Pt unable to bear weight through his left wrist Short Term Goal (STG) Pt to tolerate five push-ups without increased wrist pain STG Duration 03/29/19 Telegraph Dispatcher Goal (LTG) Pt to participate in a full yoga session without being limited by his wrist LTG Duration 04/29/19 One Impairment Pt does not have an appropriate home exercise program Short Term Goal (STG) Pt to be independent and complaint with an appropriate HEP STG Duration 03/29/19 Assessment Summary Assessment Pt excited now to continue with physical therapy. Pt reports he has a referral for multiple x-rays, which he hopes to obtain prior to his next PT appt. Physical Therapy Plan Frequency and Duration Frequency of Treatment 2x/Week Duration of Treatment 10 weeks Plan of Care Start Date 02/27/19 Plan of Care End Date 05/08/19 Therapeutic Interventions Therapeutic Interventions Aquatic Therapy Balance Training Gait Training Home Exercise Program Joint Mobilizations Modalities Cold Pack/Ice Massage Electric Stimulation Hot Packs Ultrasound Next Visit Focus/Plan Next Note Type Treatment Note Next Visit Plan Hip strengthening, ankle ROM, wrist ROM, STM to R gastroc
--- NOTE | 2019-04-04 19:07 | PT.OTN ---
Current Diagnoses Pain in left wrist (04/04/19) Pain in right hip (04/04/19) Pain in right ankle and joints of right foot (04/04/19) Stiffness of left wrist, not elsewhere classified (04/04/19) Stiffness of right ankle, not elsewhere classified (04/04/19) Muscle weakness (generalized) (04/04/19) Other abnormalities of gait and mobility (04/04/19) Physical Therapy Treatment Note PT-OP-A Visit Information Start: 02/27/19 10:33 Freq: Status: Active Protocol: Document 04/04/19 18:49 [facility] (Rec: 04/04/19 19:07 [facility] [email or web address]) Out-Patient Physical Therapy Visit Information Visit Information Visit Type Treatment Note Visit Start Time 17:37 Visit Stop Time 18:32 Total Visit Minutes 55 Visit Number 7 Number of DOWNSTAIRS MAID Visits 0 PT-OP-B Current Condition Start: 02/27/19 10:33 Freq: Status: Active Protocol: Document 02/27/19 09:45 [facility] (Rec: 02/27/19 14:00 DCW [id number]) Current Condition History of Current Condition Onset Date Long-standing history Current Complaints L wrist pain, R ankle pain, R hip pain History of Current Condition Pt is a 23 year old male presenting with a complicated injury history at multiple sites. Pt has broken his left wrist 5-6 times, the most recent being three years ago. Pt notes most of his injuries occurred during sports like skateboarding and snowboarding . Pt notes that he now has pain in his wrst at end-range flexion or extension, and he is unable to put weight through his left arm, which makes him unable to perform a push-up, and he has difficulty with many yoga poses. Additionally, approximately six years ago, pt fractured a metatarsal in his right foot. 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 Pt notes that then prior to leaving [place], he got a small cut on his heel, which then led to a MRSA infection, which also adds to his ankle and foot pain. Pt notes that his ankle limits his ability to perform any sort of backflips, which he used to do for fun, and limits his jogging to less than one mile. His ankle pain has also led to hip pain, as he feels his gait pattern has changed, resulting in compensatory hip movements. Treatment Goals Patient/Caregiver Goals Pt would like to retun to pain -free activities, such as yoga , jogging, push-ups, and back- flips. Prior Functional Status Baseline Function- ADL's Independent Baseline Function- Mobility Independent PT-OP-C Subjective Start: 02/27/19 10:33 Freq: Status: Active Protocol: Document 04/04/19 18:49 [facility] (Rec: 04/04/19 19:07 [facility] [email or web address]) OP-PT Subjective Patient Comments Patient Comments Pt reports he feels like his hip pain is d/t his ankle and how he is moving. Feels like stairs are really painful for his ankle with DF during descent. Notes pain & pinching ant. He cannot get a calf stretch d/t impingment feeling ant PT-OP-F Manual Assessment Start: 02/27/19 10:33 Freq: Status: Active Protocol: Document 02/27/19 09:45 [facility] (Rec: 02/27/19 11:13 DCW [id number]) Manual Assessments Soft Tissue Assessment Soft Tissue Mobility Assessment Moderate tightness right lateral gastroc, Severe tightness R ITB Joint Mobility Assessment Joint Mobility Assessment Tenderness to palpation along left wrist, specifically dorsal surface of lunate, as well as pain with weight- bearing through left hand PT-OP-G Mobility & Gait Start: 02/27/19 10:33 Freq: Status: Active Protocol: Document 02/27/19 09:45 [facility] (Rec: 02/27/19 11:13 DCW [id number]) OP Gait Assessment Gait Gait Assistance Required: Independent Assistive Devices Assistive Device None Factors Limiting Gait Function Factors Limiting Gait Function Abnormal Tonal Influences Decreased Strength Comments Gait Comments Pt ambulates with 30? right toe out secondary to overall R hip weakness, with exception of external rotators, as well as difficulty with R foot clearance secondary to limitations with dorsiflexion PT-OP-J Posture/Palpation/Skin Start: 02/27/19 10:33 Freq: Status: Active Protocol: Document 02/27/19 09:45 [facility] (Rec: 02/27/19 11:13 DCW [id number]) Palpation Assessment Location Two Palpation Location Right Lateral Gastroc Palpation Findings Soft Tissue Tightness Spasm Muscle Guarding Tenderness Trigger Point One Palpation Location Right ITB Palpation Findings Soft Tissue Tightness Muscle Guarding Tenderness Trigger Point PT-OP-K Range of Motion Start: 02/27/19 10:33 Freq: Status: Active Protocol: Document 02/27/19 09:45 [facility] (Rec: 02/27/19 11:13 DCW [id number]) Wrist Goniometric Range of Motion Wrist Left Flexion Active (degrees) 70 Extension Active (degrees) 65 Ulnar Deviation Active (degrees) 25 Radial Deviation Active (degrees) 13 ROM Limitations Wrist Limitations of Range of Motion Bony Restriction Comments Pain with end-range flexion and extension Hip Goniometric Range of Motion Hip Bilateral Hip ROM WFL Yes Knee Goniometric Range of Motion Knee Bilateral Knee ROM WFL Yes Ankle and Foot Goniometric Range of Motion Ankle and Foot Right Active Testing Position Sitting Plantarflexion 48 Inversion 40 Eversion 10 Left Active Ankle/Foot ROM WFL Yes Testing Position Sitting Dorsiflexion with Knee Flexed 10 Plantarflexion 60 Inversion 50 Eversion 23 Ankle and Foot ROM Limitations Comments R AROM DF /c knee bent: -5?; PROM 15? PT-OP-L Special Tests Start: 02/27/19 10:33 Freq: Status: Active Protocol: Document 02/27/19 09:45 [facility] (Rec: 02/27/19 11:13 DCW [id number]) Special Tests Hip Special Tests Amandeep Test Results J-sign R ANA M Test Results Negative Scour Test Test Results Negative Knee Special Tests Rudolph's Test Test Results Strongly positive R Foot/Ankle Special Tests Anterior Draw Test Results Positive R PT-OP-M Strength Start: 02/27/19 10:33 Freq: Status: Active Protocol: Document 02/27/19 09:45 [facility] (Rec: 02/27/19 11:13 DCW [id number]) Wrist Strength Wrist Manual Muscle Testing Left Flexion (C7) 4+ Good+ Extension (C6) 4+ Good+ Ulnar Deviation 4 Good Radial Deviation 4 Good Hip Strength Hip Manual Muscle Testing Right Flexion (L2) 4- Good- Abduction 4- Good- Adduction 4- Good- External Rotation 4+ Good+ Internal Rotation 4- Good- Left Flexion (L2) 4+ Good+ Extension (S1) 4+ Good+ Abduction 4+ Good+ Adduction 4+ Good+ External Rotation 4+ Good+ Internal Rotation 4+ Good+ Knee Strength Knee Manual Muscle Testing Bilateral Flexion (S2) 4+ Good+ Extension (L3) 4+ Good+ Ankle/Foot Strength Ankle and Foot Manual Muscle Testing Bilateral Dorsiflexion (L4) 4+ Good+ Plantarflexion (S1) 4+ Good+ Inversion 4+ Good+ Eversion (S1) 4+ Good+ PT-OP-Q Treatments Start: 02/27/19 10:33 Freq: Status: Active Protocol: Document 04/04/19 18:49 [facility] (Rec: 04/04/19 19:07 [facility] [email or web address]) Therapeutic Exercises Sitting Exercises 1 Sitting Exercise Name wrist flexor stretch Side left Reps/Minutes 45 sec Standing Exercises 2 Standing Exercise Name short foot exercise Side right Reps/Minutes 10 Other Exercises yoga Other Exercise Name cat camel then downward dog Comments focus on push away and use of scapular stability Manual Therapy Treatment Joint Mobilizations tibfib Joint distal Direction AP FM Comments supine & standing talus Joint L Direction AP & distraction FM Comments supine & standing calcaneus Joint L Direction distraction & lat gliding & gapping FM radio carpal Joint L Direction AP on scaphoid, capitate, trapezium Wrist Joint radioulnar joint Direction radial PA functional mob Body Position Sitting Self-Care/Home Management Treatment Education Other Education edu of anatomy and mechanism of talus positioning after ankle sprains PT-OP-T Assessment and Plan Start: 02/27/19 10:33 Freq: Status: Active Protocol: Document 04/04/19 18:49 [facility] (Rec: 04/04/19 19:07 [facility] [id number]) Physical Therapy Assessment Goals Five Impairment Limited ankle ROM Manager Auto Goal (LTG) Pt to increased right Dorsiflexion from lacking 5? from neutral to 10? to improve quality of swing phase of gait LTG Duration 04/29/19 Four Impairment Right hip weakness Manager Auto Goal (LTG) Pt right hip MMT to at least 4 +/5 LTG Duration 04/29/19 Three Impairment Pt unable to jog more than one mile due to hip pain STG Duration 03/29/19 Manager Auto Goal (LTG) Pt to jog three miles with no increased hip pain LTG Duration 04/29/19 Two Impairment Pt unable to bear weight through his left wrist Short Term Goal (STG) Pt to tolerate five push-ups without increased wrist pain STG Duration 03/29/19 Usp Goal (LTG) Pt to participate in a full yoga session without being limited by his wrist LTG Duration 04/29/19 One Impairment Pt does not have an appropriate home exercise program Short Term Goal (STG) Pt to be independent and complaint with an appropriate HEP STG Duration 03/29/19 Assessment Summary Assessment Pt was very receptive to joint education & on edu regarding talar glide during ankle sprains. Pt had improved knee bending (WB DF) after mobs but cont to have significant limations throughout ankle and foot that make it difficult for him to get appropriate DF. He was able to improve arch and foot position with cueing. He also had slight dec in wrist pain when edu for scap and core stability during yoga poses. He had improved PROM into ext and flex with signficantly dec pain at end ranges after mobilizations. Ankle is likely significantly limited and painful with WB DF activities like descending stairs d/t talar ,tibfib, and forefoot mobility. Physical Therapy Plan Frequency and Duration Frequency of Treatment 2x/Week Duration of Treatment 10 weeks Plan of Care Start Date 02/27/19 Plan of Care End Date 05/08/19 Next Visit Focus/Plan Next Note Type Treatment Note Next Visit Plan Talar AP mobilations for talus back on axis, AP tibia & fibula in WB mobs with DF, cuneiform mobs, MT mobs for improved spreading to allow appropriate wt acceptance
--- NOTE | 2019-04-06 19:31 | PT.OTN ---
Current Diagnoses Pain in left wrist (04/06/19) Pain in right hip (04/06/19) Pain in right ankle and joints of right foot (04/06/19) Stiffness of left wrist, not elsewhere classified (04/06/19) Stiffness of right ankle, not elsewhere classified (04/06/19) Muscle weakness (generalized) (04/06/19) Other abnormalities of gait and mobility (04/06/19) Physical Therapy Treatment Note PT-OP-A Visit Information Start: 02/27/19 10:33 Freq: Status: Active Protocol: Document 04/06/19 17:40 [facility] (Rec: 04/06/19 19:30 [facility] [email or web address]) Out-Patient Physical Therapy Visit Information Visit Information Visit Type Treatment Note Visit Start Time 17:40 Visit Stop Time 18:20 Total Visit Minutes 40 Visit Number 8 Number of RETAIL MARKETING EXECUTIVE Visits 0 PT-OP-B Current Condition Start: 02/27/19 10:33 Freq: Status: Active Protocol: Document 02/27/19 09:45 [facility] (Rec: 02/27/19 14:00 DCW [id number]) Current Condition History of Current Condition Onset Date Long-standing history Current Complaints L wrist pain, R ankle pain, R hip pain History of Current Condition Pt is a 23 year old male presenting with a complicated injury history at multiple sites. Pt has broken his left wrist 5-6 times, the most recent being three years ago. Pt notes most of his injuries occurred during sports like skateboarding and snowboarding . Pt notes that he now has pain in his wrst at end-range flexion or extension, and he is unable to put weight through his left arm, which makes him unable to perform a push-up, and he has difficulty with many yoga poses. Additionally, approximately six years ago, pt fractured a metatarsal in his right foot. 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 Pt notes that then prior to leaving [place], he got a small cut on his heel, which then led to a MRSA infection, which also adds to his ankle and foot pain. Pt notes that his ankle limits his ability to perform any sort of backflips, which he used to do for fun, and limits his jogging to less than one mile. His ankle pain has also led to hip pain, as he feels his gait pattern has changed, resulting in compensatory hip movements. Treatment Goals Patient/Caregiver Goals Pt would like to retun to pain -free activities, such as yoga , jogging, push-ups, and back- flips. Prior Functional Status Baseline Function- ADL's Independent Baseline Function- Mobility Independent PT-OP-C Subjective Start: 02/27/19 10:33 Freq: Status: Active Protocol: Document 04/06/19 17:40 [facility] (Rec: 04/06/19 19:30 [facility] [email or web address]) OP-PT Subjective Patient Comments Patient Comments Pt had x rays for L wrist and R ankle 2 days. recommended pt to consult with orthopedic surgeon regarding whether sx is needed for his R ankle due to 2 floating fragments were found. PT-OP-F Manual Assessment Start: 02/27/19 10:33 Freq: Status: Active Protocol: Document 02/27/19 09:45 [facility] (Rec: 02/27/19 11:13 DCW [id number]) Manual Assessments Soft Tissue Assessment Soft Tissue Mobility Assessment Moderate tightness right lateral gastroc, Severe tightness R ITB Joint Mobility Assessment Joint Mobility Assessment Tenderness to palpation along left wrist, specifically dorsal surface of lunate, as well as pain with weight- bearing through left hand PT-OP-G Mobility & Gait Start: 02/27/19 10:33 Freq: Status: Active Protocol: Document 02/27/19 09:45 [facility] (Rec: 02/27/19 11:13 DCW [id number]) OP Gait Assessment Gait Gait Assistance Required: Independent Assistive Devices Assistive Device None Factors Limiting Gait Function Factors Limiting Gait Function Abnormal Tonal Influences Decreased Strength Comments Gait Comments Pt ambulates with 30? right toe out secondary to overall R hip weakness, with exception of external rotators, as well as difficulty with R foot clearance secondary to limitations with dorsiflexion PT-OP-J Posture/Palpation/Skin Start: 02/27/19 10:33 Freq: Status: Active Protocol: Document 02/27/19 09:45 [facility] (Rec: 02/27/19 11:13 DCW [id number]) Palpation Assessment Location Two Palpation Location Right Lateral Gastroc Palpation Findings Soft Tissue Tightness Spasm Muscle Guarding Tenderness Trigger Point One Palpation Location Right ITB Palpation Findings Soft Tissue Tightness Muscle Guarding Tenderness Trigger Point PT-OP-K Range of Motion Start: 02/27/19 10:33 Freq: Status: Active Protocol: Document 02/27/19 09:45 [facility] (Rec: 02/27/19 11:13 DCW [id number]) Wrist Goniometric Range of Motion Wrist Left Flexion Active (degrees) 70 Extension Active (degrees) 65 Ulnar Deviation Active (degrees) 25 Radial Deviation Active (degrees) 13 ROM Limitations Wrist Limitations of Range of Motion Bony Restriction Comments Pain with end-range flexion and extension Hip Goniometric Range of Motion Hip Bilateral Hip ROM WFL Yes Knee Goniometric Range of Motion Knee Bilateral Knee ROM WFL Yes Ankle and Foot Goniometric Range of Motion Ankle and Foot Right Active Testing Position Sitting Plantarflexion 48 Inversion 40 Eversion 10 Left Active Ankle/Foot ROM WFL Yes Testing Position Sitting Dorsiflexion with Knee Flexed 10 Plantarflexion 60 Inversion 50 Eversion 23 Ankle and Foot ROM Limitations Comments R AROM DF /c knee bent: -5?; PROM 15? PT-OP-L Special Tests Start: 02/27/19 10:33 Freq: Status: Active Protocol: Document 02/27/19 09:45 [facility] (Rec: 02/27/19 11:13 DCW [id number]) Special Tests Hip Special Tests Amandeep Test Results J-sign R ANA M Test Results Negative Scour Test Test Results Negative Knee Special Tests Rudolph's Test Test Results Strongly positive R Foot/Ankle Special Tests Anterior Draw Test Results Positive R PT-OP-M Strength Start: 02/27/19 10:33 Freq: Status: Active Protocol: Document 02/27/19 09:45 [facility] (Rec: 02/27/19 11:13 DCW [id number]) Wrist Strength Wrist Manual Muscle Testing Left Flexion (C7) 4+ Good+ Extension (C6) 4+ Good+ Ulnar Deviation 4 Good Radial Deviation 4 Good Hip Strength Hip Manual Muscle Testing Right Flexion (L2) 4- Good- Abduction 4- Good- Adduction 4- Good- External Rotation 4+ Good+ Internal Rotation 4- Good- Left Flexion (L2) 4+ Good+ Extension (S1) 4+ Good+ Abduction 4+ Good+ Adduction 4+ Good+ External Rotation 4+ Good+ Internal Rotation 4+ Good+ Knee Strength Knee Manual Muscle Testing Bilateral Flexion (S2) 4+ Good+ Extension (L3) 4+ Good+ Ankle/Foot Strength Ankle and Foot Manual Muscle Testing Bilateral Dorsiflexion (L4) 4+ Good+ Plantarflexion (S1) 4+ Good+ Inversion 4+ Good+ Eversion (S1) 4+ Good+ PT-OP-Q Treatments Start: 02/27/19 10:33 Freq: Status: Active Protocol: Document 04/06/19 17:40 [facility] (Rec: 04/06/19 19:30 [facility] [email or web address]) Therapeutic Exercises Sitting Exercises RDL Sitting Exercise Name SLS with toe touch Side bilateral Reps/Minutes 5 x 2 sets single leg stance Side bilateral Reps/Minutes 20 s x 4 Standing Exercises wrist ext with mob Side left Reps/Minutes 2 mins Comments AP mob on carpal bones lunge with mob Standing Exercise Name R ankle Side right Reps/Minutes 5 mins Comments AP mob on talus Manual Therapy Treatment Joint Mobilizations tibfib Joint distal Direction AP FM Comments supine & standing talus Joint L Direction AP & distraction FM Comments supine & standing calcaneus Joint L Direction distraction & lat gliding & gapping FM radio carpal Joint L Direction AP on scaphoid, capitate, trapezium Wrist Joint radioulnar joint Direction radial PA functional mob Body Position Sitting PT-OP-T Assessment and Plan Start: 02/27/19 10:33 Freq: Status: Active Protocol: Document 04/06/19 17:40 [facility] (Rec: 04/06/19 19:30 [email or web address]) Physical Therapy Assessment Assessment Summary Assessment Pt reports his overall ROM and soreness sensation have not been improving much since IE. But did report reduced slight restriction during wrist ext and ankle DF at the end of tx session. Proved self ankle and wirst mob during lunges and wrist ext Physical Therapy Plan Next Visit Focus/Plan Next Note Type Treatment Note Next Visit Plan Talar AP mobilations for talus back on axis, AP tibia & fibula in WB mobs with DF, cuneiform mobs, MT mobs for improved spreading to allow appropriate wt acceptance
--- NOTE | 2019-04-11 18:40 | PT.OTN ---
Current Diagnoses Pain in left wrist (04/11/19) Pain in right hip (04/11/19) Pain in right ankle and joints of right foot (04/11/19) Stiffness of left wrist, not elsewhere classified (04/11/19) Stiffness of right ankle, not elsewhere classified (04/11/19) Muscle weakness (generalized) (04/11/19) Other abnormalities of gait and mobility (04/11/19) Physical Therapy Treatment Note PT-OP-A Visit Information Start: 02/27/19 10:33 Freq: Status: Active Protocol: Document 04/11/19 17:45 HH (Rec: 04/11/19 18:40 HH [email or web address]) Out-Patient Physical Therapy Visit Information Visit Information Visit Type Treatment Note Visit Note pt's is 15 mins late Visit Start Time 17:45 Visit Stop Time 18:30 Total Visit Minutes 45 Visit Number 9 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 Pt has broken his left wrist 5-6 times, the most recent being three years ago. Pt notes most of his injuries occurred during sports like skateboarding and snowboarding . Pt notes that he now has pain in his wrst at end-range flexion or extension, and he is unable to put weight through his left arm, which makes him unable to perform a push-up, and he has difficulty with many yoga poses. Additionally, approximately six years ago, pt fractured a metatarsal in his right foot. 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 Pt notes that then prior to leaving [place], he got a small cut on his heel, which then led to a MRSA infection, which also adds to his ankle and foot pain. Pt notes that his ankle limits his ability to perform any sort of backflips, which he used to do for fun, and limits his jogging to less than one mile. His ankle pain has also led to hip pain, as he feels his gait pattern has changed, resulting in compensatory hip movements. Treatment Goals Patient/Caregiver Goals Pt would like to retun to pain -free activities, such as yoga , jogging, push-ups, and back- flips. Prior Functional Status Baseline Function- ADL's Independent Baseline Function- Mobility Independent PT-OP-C Subjective Start: 02/27/19 10:33 Freq: Status: Active Protocol: Document 04/11/19 17:45 HH (Rec: 04/11/19 18:40 HH [email or web address]) OP-PT Subjective Patient Comments Patient Comments 'My ankle and wrist pain and soreness are constant. Char been doing my hEp too. Im going to get scheduled with surgeon consult didi. PT-OP-F Manual Assessment Start: 02/27/19 10:33 Freq: Status: Active Protocol: Document 02/27/19 09:45 DCW (Rec: 02/27/19 11:13 DCW [id number]) Manual Assessments Soft Tissue Assessment Soft Tissue Mobility Assessment Moderate tightness right lateral gastroc, Severe tightness R ITB Joint Mobility Assessment Joint Mobility Assessment Tenderness to palpation along left wrist, specifically dorsal surface of lunate, as well as pain with weight- bearing through left hand PT-OP-G Mobility & Gait Start: 02/27/19 10:33 Freq: Status: Active Protocol: Document 02/27/19 09:45 DCW (Rec: 02/27/19 11:13 DCW [id number]) OP Gait Assessment Gait Gait Assistance Required: Independent Assistive Devices Assistive Device None Factors Limiting Gait Function Factors Limiting Gait Function Abnormal Tonal Influences Decreased Strength Comments Gait Comments Pt ambulates with 30? right toe out secondary to overall R hip weakness, with exception of external rotators, as well as difficulty with R foot clearance secondary to limitations with dorsiflexion PT-OP-J Posture/Palpation/Skin Start: 02/27/19 10:33 Freq: Status: Active Protocol: Document 02/27/19 09:45 DCW (Rec: 02/27/19 11:13 DCW [id number]) Palpation Assessment Location Two Palpation Location Right Lateral Gastroc Palpation Findings Soft Tissue Tightness Spasm Muscle Guarding Tenderness Trigger Point One Palpation Location Right ITB Palpation Findings Soft Tissue Tightness Muscle Guarding Tenderness Trigger Point PT-OP-K Range of Motion Start: 02/27/19 10:33 Freq: Status: Active Protocol: Document 02/27/19 09:45 DCW (Rec: 02/27/19 11:13 DCW [id number]) Wrist Goniometric Range of Motion Wrist Left Flexion Active (degrees) 70 Extension Active (degrees) 65 Ulnar Deviation Active (degrees) 25 Radial Deviation Active (degrees) 13 ROM Limitations Wrist Limitations of Range of Motion Bony Restriction Comments Pain with end-range flexion and extension Hip Goniometric Range of Motion Hip Bilateral Hip ROM WFL Yes Knee Goniometric Range of Motion Knee Bilateral Knee ROM WFL Yes Ankle and Foot Goniometric Range of Motion Ankle and Foot Right Active Testing Position Sitting Plantarflexion 48 Inversion 40 Eversion 10 Left Active Ankle/Foot ROM WFL Yes Testing Position Sitting Dorsiflexion with Knee Flexed 10 Plantarflexion 60 Inversion 50 Eversion 23 Ankle and Foot ROM Limitations Comments R AROM DF /c knee bent: -5?; PROM 15? PT-OP-L Special Tests Start: 02/27/19 10:33 Freq: Status: Active Protocol: Document 02/27/19 09:45 DCW (Rec: 02/27/19 11:13 DCW [id number]) Special Tests Hip Special Tests Amandeep Test Results J-sign R ANA M Test Results Negative Scour Test Test Results Negative Knee Special Tests Rudolph's Test Test Results Strongly positive R Foot/Ankle Special Tests Anterior Draw Test Results Positive R PT-OP-M Strength Start: 02/27/19 10:33 Freq: Status: Active Protocol: Document 02/27/19 09:45 DCW (Rec: 02/27/19 11:13 DCW [id number]) Wrist Strength Wrist Manual Muscle Testing Left Flexion (C7) 4+ Good+ Extension (C6) 4+ Good+ Ulnar Deviation 4 Good Radial Deviation 4 Good Hip Strength Hip Manual Muscle Testing Right Flexion (L2) 4- Good- Abduction 4- Good- Adduction 4- Good- External Rotation 4+ Good+ Internal Rotation 4- Good- Left Flexion (L2) 4+ Good+ Extension (S1) 4+ Good+ Abduction 4+ Good+ Adduction 4+ Good+ External Rotation 4+ Good+ Internal Rotation 4+ Good+ Knee Strength Knee Manual Muscle Testing Bilateral Flexion (S2) 4+ Good+ Extension (L3) 4+ Good+ Ankle/Foot Strength Ankle and Foot Manual Muscle Testing Bilateral Dorsiflexion (L4) 4+ Good+ Plantarflexion (S1) 4+ Good+ Inversion 4+ Good+ Eversion (S1) 4+ Good+ PT-OP-Q Treatments Start: 02/27/19 10:33 Freq: Status: Active Protocol: Document 04/11/19 17:45 HH (Rec: 04/11/19 18:40 HH [email or web address]) Therapeutic Exercises Supine Exercises iso ankle eversion Side right Reps/Minutes 5 mins Comments iso hold at ankle PF and inverted position Prone Exercises prone knee stretch Side right Reps/Minutes 5 mins Comments cues on ankle PF Manual Therapy Treatment Joint Mobilizations tibfib Joint distal Direction AP FM Comments supine & standing talus Joint L Direction AP & distraction FM Comments supine & standing calcaneus Joint L Direction distraction & lat gliding & gapping FM PT-OP-T Assessment and Plan Start: 02/27/19 10:33 Freq: Status: Active Protocol: Document 04/11/19 17:45 HH (Rec: 04/11/19 18:40 [email or web address]) Physical Therapy Assessment Assessment Summary Assessment knee to wall test after tx session today: L= 4.5 inches, R= 3.5 inches. Introduced R femoral nerve glide in prone for desenitization today. Will f/u next time. Physical Therapy Plan Next Visit Focus/Plan Next Note Type Treatment Note Next Visit Plan review femoral nerve glide Talar AP mobilations for talus back on axis, AP tibia & fibula in WB mobs with DF, cuneiform mobs, MT mobs for improved spreading to allow appropriate wt acceptance
--- NOTE | 2019-04-19 18:52 | PT.OTN ---
Current Diagnoses Pain in left wrist (04/19/19) Pain in right hip (04/19/19) Pain in right ankle and joints of right foot (04/19/19) Stiffness of left wrist, not elsewhere classified (04/19/19) Stiffness of right ankle, not elsewhere classified (04/19/19) Muscle weakness (generalized) (04/19/19) Other abnormalities of gait and mobility (04/19/19) Physical Therapy Treatment Note PT-OP-A Visit Information Start: 02/27/19 10:33 Freq: Status: Active Protocol: Document 04/19/19 17:45 HH (Rec: 04/19/19 18:52 HH [email or web address]) Out-Patient Physical Therapy Visit Information Visit Information Visit Type Treatment Note Visit Start Time 17:45 Visit Stop Time 18:15 Total Visit Minutes 45 Visit Number 10 Number of TIRE WRAPPER Visits 0 PT-OP-B Current Condition Start: 02/27/19 10:33 Freq: Status: Active Protocol: Document 02/27/19 09:45 DCW (Rec: 02/27/19 14:00 DCW [id number]) Current Condition History of Current Condition Onset Date Long-standing history Current Complaints L wrist pain, R ankle pain, R hip pain History of Current Condition Pt is a 23 year old male presenting with a complicated injury history at multiple sites. Pt has broken his left wrist 5-6 times, the most recent being three years ago. Pt notes most of his injuries occurred during sports like skateboarding and snowboarding . Pt notes that he now has pain in his wrst at end-range flexion or extension, and he is unable to put weight through his left arm, which makes him unable to perform a push-up, and he has difficulty with many yoga poses. Additionally, approximately six years ago, pt fractured a metatarsal in his right foot. 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 Pt notes that then prior to leaving [place], he got a small cut on his heel, which then led to a MRSA infection, which also adds to his ankle and foot pain. Pt notes that his ankle limits his ability to perform any sort of backflips, which he used to do for fun, and limits his jogging to less than one mile. His ankle pain has also led to hip pain, as he feels his gait pattern has changed, resulting in compensatory hip movements. Treatment Goals Patient/Caregiver Goals Pt would like to retun to pain -free activities, such as yoga , jogging, push-ups, and back- flips. Prior Functional Status Baseline Function- ADL's Independent Baseline Function- Mobility Independent PT-OP-C Subjective Start: 02/27/19 10:33 Freq: Status: Active Protocol: Document 04/19/19 17:45 HH (Rec: 04/19/19 18:52 HH [email or web address]) OP-PT Subjective Patient Comments Patient Comments Patient will have a MRI on next wednesday and follow up with ortho after. PT-OP-F Manual Assessment Start: 02/27/19 10:33 Freq: Status: Active Protocol: Document 02/27/19 09:45 DCW (Rec: 02/27/19 11:13 DCW [id number]) Manual Assessments Soft Tissue Assessment Soft Tissue Mobility Assessment Moderate tightness right lateral gastroc, Severe tightness R ITB Joint Mobility Assessment Joint Mobility Assessment Tenderness to palpation along left wrist, specifically dorsal surface of lunate, as well as pain with weight- bearing through left hand PT-OP-G Mobility & Gait Start: 02/27/19 10:33 Freq: Status: Active Protocol: Document 02/27/19 09:45 DCW (Rec: 02/27/19 11:13 DCW [id number]) OP Gait Assessment Gait Gait Assistance Required: Independent Assistive Devices Assistive Device None Factors Limiting Gait Function Factors Limiting Gait Function Abnormal Tonal Influences Decreased Strength Comments Gait Comments Pt ambulates with 30? right toe out secondary to overall R hip weakness, with exception of external rotators, as well as difficulty with R foot clearance secondary to limitations with dorsiflexion PT-OP-J Posture/Palpation/Skin Start: 02/27/19 10:33 Freq: Status: Active Protocol: Document 02/27/19 09:45 DCW (Rec: 02/27/19 11:13 DCW [id number]) Palpation Assessment Location Two Palpation Location Right Lateral Gastroc Palpation Findings Soft Tissue Tightness Spasm Muscle Guarding Tenderness Trigger Point One Palpation Location Right ITB Palpation Findings Soft Tissue Tightness Muscle Guarding Tenderness Trigger Point PT-OP-K Range of Motion Start: 02/27/19 10:33 Freq: Status: Active Protocol: Document 02/27/19 09:45 DCW (Rec: 02/27/19 11:13 DCW [id number]) Wrist Goniometric Range of Motion Wrist Left Flexion Active (degrees) 70 Extension Active (degrees) 65 Ulnar Deviation Active (degrees) 25 Radial Deviation Active (degrees) 13 ROM Limitations Wrist Limitations of Range of Motion Bony Restriction Comments Pain with end-range flexion and extension Hip Goniometric Range of Motion Hip Bilateral Hip ROM WFL Yes Knee Goniometric Range of Motion Knee Bilateral Knee ROM WFL Yes Ankle and Foot Goniometric Range of Motion Ankle and Foot Right Active Testing Position Sitting Plantarflexion 48 Inversion 40 Eversion 10 Left Active Ankle/Foot ROM WFL Yes Testing Position Sitting Dorsiflexion with Knee Flexed 10 Plantarflexion 60 Inversion 50 Eversion 23 Ankle and Foot ROM Limitations Comments R AROM DF /c knee bent: -5?; PROM 15? PT-OP-L Special Tests Start: 02/27/19 10:33 Freq: Status: Active Protocol: Document 02/27/19 09:45 DCW (Rec: 02/27/19 11:13 DCW [id number]) Special Tests Hip Special Tests Amandeep Test Results J-sign R ANA M Test Results Negative Scour Test Test Results Negative Knee Special Tests Rudolph's Test Test Results Strongly positive R Foot/Ankle Special Tests Anterior Draw Test Results Positive R PT-OP-M Strength Start: 02/27/19 10:33 Freq: Status: Active Protocol: Document 02/27/19 09:45 DCW (Rec: 02/27/19 11:13 DCW [id number]) Wrist Strength Wrist Manual Muscle Testing Left Flexion (C7) 4+ Good+ Extension (C6) 4+ Good+ Ulnar Deviation 4 Good Radial Deviation 4 Good Hip Strength Hip Manual Muscle Testing Right Flexion (L2) 4- Good- Abduction 4- Good- Adduction 4- Good- External Rotation 4+ Good+ Internal Rotation 4- Good- Left Flexion (L2) 4+ Good+ Extension (S1) 4+ Good+ Abduction 4+ Good+ Adduction 4+ Good+ External Rotation 4+ Good+ Internal Rotation 4+ Good+ Knee Strength Knee Manual Muscle Testing Bilateral Flexion (S2) 4+ Good+ Extension (L3) 4+ Good+ Ankle/Foot Strength Ankle and Foot Manual Muscle Testing Bilateral Dorsiflexion (L4) 4+ Good+ Plantarflexion (S1) 4+ Good+ Inversion 4+ Good+ Eversion (S1) 4+ Good+ PT-OP-Q Treatments Start: 02/27/19 10:33 Freq: Status: Active Protocol: Document 04/19/19 17:45 (Rec: 04/19/19 18:52 [email or web address]) Therapeutic Exercises Sitting Exercises RDL Sitting Exercise Name SLS with toe touch Side bilateral Equipment Used on blue foam Reps/Minutes 10 x 5 single leg stance Sitting Exercise Name single leg stance Side bilateral Equipment Used blue foam Reps/Minutes 10 x5 Comments with ball catch Standing Exercises single leg squat Side bilateral Equipment Used with grab bar Reps/Minutes 10 x 4 Comments cues on knee alignment star excusion test Side bilateral Equipment Used blue foam with cones Reps/Minutes 10 mins Comments cues on knee alignment PT-OP-T Assessment and Plan Start: 02/27/19 10:33 Freq: Status: Active Protocol: Document 04/19/19 17:45 (Rec: 04/19/19 18:52 [email or web address]) Physical Therapy Assessment Goals Five Impairment Limited ankle ROM Superintendent Transmission Goal (LTG) Pt to increased right Dorsiflexion from lacking 5? from neutral to 10? to improve quality of swing phase of gait LTG Duration 04/29/19 Four Impairment Right hip weakness Superintendent Transmission Goal (LTG) Pt right hip MMT to at least 4 +/5 LTG Duration 04/29/19 Three Impairment Pt unable to jog more than one mile due to hip pain STG Duration 03/29/19 Nursing Home Goal (LTG) Pt to jog three miles with no increased hip pain LTG Duration 04/29/19 Two Impairment Pt unable to bear weight through his left wrist Short Term Goal (STG) Pt to tolerate five push-ups without increased wrist pain STG Duration 03/29/19 Superintendent Transmission Goal (LTG) Pt to participate in a full yoga session without being limited by his wrist LTG Duration 04/29/19 One Impairment Pt does not have an appropriate home exercise program Short Term Goal (STG) Pt to be independent and complaint with an appropriate HEP STG Duration 03/29/19 Assessment Summary Assessment Pt required cues on knee and ankle alignment on RLE during SLS and single leg squat. Pt tends to present knee valgus and ankle pronation. New HEP given for RDL, star excursion and single leg squat for balance and strengthening. Recommended pt to PT 1x for every weeks from now on due to his progress. Will assess running next time. Physical Therapy Plan Next Visit Focus/Plan Next Note Type Treatment Note Next Visit Plan SLS, single leg squat reivew running pt's sx option.
--- NOTE | 2019-04-28 13:35 | PT.OPDS ---
Current Diagnoses Pain in left wrist (04/19/19) Pain in right hip (04/19/19) Pain in right ankle and joints of right foot (04/19/19) Stiffness of left wrist, not elsewhere classified (04/19/19) Stiffness of right ankle, not elsewhere classified (04/19/19) Muscle weakness (generalized) (04/19/19) Other abnormalities of gait and mobility (04/19/19) Provider Visit Care Team Role Provider Type LOW Resendiz Attending Provider Advanced Company Secretary Primary Care Provider Specialty: [facility] Address: [address] [place] [address] Email: [email or web address] Visit Number Visit Number 10 Discharge Summary PT-OP-B Current Condition Start: 02/27/19 10:33 Freq: Status: Active Protocol: Document 02/27/19 09:45 DCW (Rec: 02/27/19 14:00 DCW [id number]) Current Condition History of Current Condition Onset Date Long-standing history Current Complaints L wrist pain, R ankle pain, R hip pain History of Current Condition Pt is a 23 year old male presenting with a complicated injury history at multiple sites. Pt has broken his left wrist 5-6 times, the most recent being three years ago. Pt notes most of his injuries occurred during sports like skateboarding and snowboarding . Pt notes that he now has pain in his wrst at end-range flexion or extension, and he is unable to put weight through his left arm, which makes him unable to perform a push-up, and he has difficulty with many yoga poses. Additionally, approximately six years ago, pt fractured a metatarsal in his right foot. 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 Pt notes that his ankle limits his ability to perform any sort of backflips, which he used to do for fun, and limits his jogging to less than one mile. His ankle pain has also led to hip pain, as he feels his gait pattern has changed, resulting in compensatory hip movements. Treatment Goals Patient/Caregiver Goals Pt would like to retun to pain -free activities, such as yoga , jogging, push-ups, and back- flips. Prior Functional Status Baseline Function- ADL's Independent Baseline Function- Mobility Independent PT-OP-C Subjective Start: 02/27/19 10:33 Freq: Status: Active Protocol: Document 04/19/19 17:45 HH (Rec: 04/19/19 18:52 HH [id number]) OP-PT Subjective Patient Comments Patient Comments Patient will have a MRI on next wednesday and follow up with ortho after. PT-OP-F Manual Assessment Start: 02/27/19 10:33 Freq: Status: Active Protocol: Document 02/27/19 09:45 DCW (Rec: 02/27/19 11:13 DCW [id number]) Manual Assessments Soft Tissue Assessment Soft Tissue Mobility Assessment Moderate tightness right lateral gastroc, Severe tightness R ITB Joint Mobility Assessment Joint Mobility Assessment Tenderness to palpation along left wrist, specifically dorsal surface of lunate, as well as pain with weight- bearing through left hand PT-OP-G Mobility & Gait Start: 02/27/19 10:33 Freq: Status: Active Protocol: Document 02/27/19 09:45 DCW (Rec: 02/27/19 11:13 DCW [id number]) OP Gait Assessment Gait Gait Assistance Required: Independent Assistive Devices Assistive Device None Factors Limiting Gait Function Factors Limiting Gait Function Abnormal Tonal Influences Decreased Strength Comments Gait Comments Pt ambulates with 30? right toe out secondary to overall R hip weakness, with exception of external rotators, as well as difficulty with R foot clearance secondary to limitations with dorsiflexion PT-OP-J Posture/Palpation/Skin Start: 02/27/19 10:33 Freq: Status: Active Protocol: Document 02/27/19 09:45 DCW (Rec: 02/27/19 11:13 DCW [id number]) Palpation Assessment Location Two Palpation Location Right Lateral Gastroc Palpation Findings Soft Tissue Tightness Spasm Muscle Guarding Tenderness Trigger Point One Palpation Location Right ITB Palpation Findings Soft Tissue Tightness Muscle Guarding Tenderness Trigger Point PT-OP-K Range of Motion Start: 02/27/19 10:33 Freq: Status: Active Protocol: Document 02/27/19 09:45 DCW (Rec: 02/27/19 11:13 DCW [id number]) Wrist Goniometric Range of Motion Wrist Left Flexion Active (degrees) 70 Extension Active (degrees) 65 Ulnar Deviation Active (degrees) 25 Radial Deviation Active (degrees) 13 ROM Limitations Wrist Limitations of Range of Motion Bony Restriction Comments Pain with end-range flexion and extension Hip Goniometric Range of Motion Hip Bilateral Hip ROM WFL Yes Knee Goniometric Range of Motion Knee Bilateral Knee ROM WFL Yes Ankle and Foot Goniometric Range of Motion Ankle and Foot Right Active Testing Position Sitting Plantarflexion 48 Inversion 40 Eversion 10 Left Active Ankle/Foot ROM WFL Yes Testing Position Sitting Dorsiflexion with Knee Flexed 10 Plantarflexion 60 Inversion 50 Eversion 23 Ankle and Foot ROM Limitations Comments R AROM DF /c knee bent: -5?; PROM 15? PT-OP-L Special Tests Start: 02/27/19 10:33 Freq: Status: Active Protocol: Document 02/27/19 09:45 DCW (Rec: 02/27/19 11:13 DCW [id number]) Special Tests Hip Special Tests Amandeep Test Results J-sign R ANA M Test Results Negative Scour Test Test Results Negative Knee Special Tests Rudolph's Test Test Results Strongly positive R Foot/Ankle Special Tests Anterior Draw Test Results Positive R PT-OP-M Strength Start: 02/27/19 10:33 Freq: Status: Active Protocol: Document 02/27/19 09:45 DCW (Rec: 02/27/19 11:13 DCW [id number]) Wrist Strength Wrist Manual Muscle Testing Left Flexion (C7) 4+ Good+ Extension (C6) 4+ Good+ Ulnar Deviation 4 Good Radial Deviation 4 Good Hip Strength Hip Manual Muscle Testing Right Flexion (L2) 4- Good- Abduction 4- Good- Adduction 4- Good- External Rotation 4+ Good+ Internal Rotation 4- Good- Left Flexion (L2) 4+ Good+ Extension (S1) 4+ Good+ Abduction 4+ Good+ Adduction 4+ Good+ External Rotation 4+ Good+ Internal Rotation 4+ Good+ Knee Strength Knee Manual Muscle Testing Bilateral Flexion (S2) 4+ Good+ Extension (L3) 4+ Good+ Ankle/Foot Strength Ankle and Foot Manual Muscle Testing Bilateral Dorsiflexion (L4) 4+ Good+ Plantarflexion (S1) 4+ Good+ Inversion 4+ Good+ Eversion (S1) 4+ Good+ PT-OP-T Assessment and Plan Start: 02/27/19 10:33 Freq: Status: Active Protocol: Document 04/28/19 13:32 DCW (Rec: 04/28/19 13:35 DCW [id number]) Physical Therapy Assessment Goals Five Impairment Limited ankle ROM Grain Buyer Goal (LTG) Pt to increased right Dorsiflexion from lacking 5? from neutral to 10? to improve quality of swing phase of gait LTG Duration 04/29/19 Four Impairment Right hip weakness Retirement Goal (LTG) Pt right hip MMT to at least 4 +/5 LTG Duration 04/29/19 Three Impairment Pt unable to jog more than one mile due to hip pain STG Duration 03/29/19 Grain Buyer Goal (LTG) Pt to jog three miles with no increased hip pain LTG Duration 04/29/19 Two Impairment Pt unable to bear weight through his left wrist Short Term Goal (STG) Pt to tolerate five push-ups without increased wrist pain STG Duration 03/29/19 Grain Buyer Goal (LTG) Pt to participate in a full yoga session without being limited by his wrist LTG Duration 04/29/19 One Impairment Pt does not have an appropriate home exercise program Short Term Goal (STG) Pt to be independent and complaint with an appropriate HEP STG Duration 03/29/19 Assessment Summary Assessment Pt phoned clinic, reported he underwent an MRI, and was informed by the Physician to stop PT and transfer care to Orthopedic Surgery. Pt will be discharged at this time. Physical Therapy Plan Frequency and Duration Frequency of Treatment 2x/Week Duration of Treatment 10 weeks Plan of Care Start Date 02/27/19 Plan of Care End Date 05/08/19 Other Referrals/Consults Referrals/Consults Recommended Hip MRI: 1. Moderate degenerative changes of the right hip are unusual for the patient's age. 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 This does raise the suspicion for femoral acetabular impingement and clinical correlation is recommended. 2. Moderate-sized posterosuperior right acetabular labral tear. 3. Mild distal right gluteus medius tendinopathy. Per John Sanders M.D. on Discharge Physical Therapy Discharge Reasons Change in Medical Status Next Visit Focus/Plan Next Note Type Discharge Summary
== END 2019-04-28 15:22 | disposition home or self-care (01) ==
LOC: PHYS 17:30
PROVIDERS: PCP Nurse Practitioner; Visit Provider Nurse Practitioner
DX: M25.532 Pain in left wrist (principal); M25.571 Pain in right ankle and joints of right foot; M25.551 Pain in right hip; M25.632 Stiffness of left wrist, not elsewhere classified; M25.671 Stiffness of right ankle, not elsewhere classified; M62.81 Muscle weakness (generalized); R26.89 Other abnormalities of gait and mobility
CPT/HCPCS: 97010; 97110; 97140; 97162; 97535

== ENCOUNTER → 2019-04-24 18:51 | Outpatient (CLI) | payer OTHER, MEDICAID, SELFPAY ==
--- NOTE | 2019-04-24 18:54 | DI.MRI.S_ITS ---
PROCEDURE: MR HIP RT WO CON INDICATIONS: RIGHT HIP PAIN TECHNIQUE: Noncontrast coronal T1 spin echo and STIR through the bony pelvis. Coronal and axial T2 fast spin echo with fat saturation, sagittal T1 spin echo, and oblique axial T2 fast spin echo with fat saturation through the hip. COMPARISON: [facility], CR, XR HIP W PEL IF DONE RT 2V, 03/25/2019, 11:11. FINDINGS: Image quality: Diagnostic. Bones and joints: There is no acute fracture, dislocation, suspicious osseous lesion, or evidence of avascular necrosis involving the right hip. Moderate degenerative changes of the right hip are present. There is bony prominence of the superior femoral head-neck junction and increased alpha angle of the right femoral head (approximately 67?). Heterogeneity of the superior hyaline articular cartilage of the right hip joint is present. There may be minimal degenerative cystic change along the lateral margin of the superior acetabulum. No significant hip effusion is identified. The remainder of the imaged osseous structures of the pelvis demonstrate no acute fractures or suspicious osseous lesions. Similar degenerative changes of the left hip are present. Labrum: Evaluation of the right acetabular labrum is suboptimal without contrast. However, there is irregular increased signal identified along the posterosuperior aspect of the left thumb that extends from the 11 o'clock position (anterosuperior) through the 12 o'clock position (superior) and along the posterior labrum to at least the 4 o'clock position (posteroinferior). No large para labral cysts are evident. Tendons and ligaments: The ligamentum teres appears intact where visualized. The distal right gluteus medius tendon demonstrates slight increase signal, but is otherwise unremarkable. The distal gluteus minimus tendon is intact and within normal limits. There is increased signal identified within the region of the greater trochanteric bursa without significant fluid contained within the bursa. The distal iliopsoas and proximal hamstrings tendons are intact. The overlying muscles of the right proximal thigh/gluteal region are within normal limits. Soft tissues: Visualized muscles demonstrate normal bulk and internal signal. Quadratus femoris muscle demonstrates no internal edema to suggest ischiofemoral impingement. The proximal sciatic neurovascular bundle appears normal adjacent to the hamstring tendons. No free pelvic fluid. Bladder wall thickness is normal. Genitourinary structures and bowel loops appear normal where visualized. IMPRESSION: 1. Moderate degenerative changes of the right hip are unusual for the patient's age. 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 This does raise the suspicion for femoral acetabular impingement and clinical correlation is recommended. 2. Moderate-sized posterosuperior right acetabular labral tear. 3. Mild distal right gluteus medius tendinopathy. Dictated by: John Sanders M.D. on 04/25/2019 at 8:43 Approved by: John Sanders M.D. on 04/25/2019 at 8:58
--- NOTE | 2019-04-24 18:54 | DI.MRI.S_ITS ---
PROCEDURE: MR ANKLE RT WO CON INDICATIONS: abnormal ankle xray, history of ankle fracture TECHNIQUE: Noncontrast sagittal T1 spin echo and T2 fast spin echo with fat saturation, axial proton density fast spin echo and T2 fast spin echo with fat saturation, coronal T1 spin echo and T2 fast spin echo with fat saturation through the ankle/hindfoot. COMPARISON: [facility], CR, XR ANKLE RT MIN 3V, 04/04/2019, 16:53. FINDINGS: Image quality: Excellent. Bones and joints: No bone marrow contusions or fractures. No hindfoot coalitions. No osteochondral injuries of the talar dome. No pathologic joint effusions. No definite marrow signal changes at the dorsal aspect of the talus. Medial structures: The posterior tibialis, flexor digitorum longus, and flexor hallucis longus tendons are intact. There is minimal posterior tibialis tenosynovitis. The posterior tibial neurovascular bundle appears normal within the tarsal tunnel, without extrinsic mass effect. There is 3 mm heterotopic ossification seen in the region of the deep fibers of the deltoid ligament complex, versus loose body. This implies chronic ligamentous injury. This is concordant with the radiographic appearance from the prior study. The spring ligament components (superomedial calcaneonavicular, medioplantar oblique calcaneonavicular, and inferoplantar longitudinal ligaments) are intact. Lateral structures: The anterior talofibular, calcaneofibular, and posterior talofibular ligaments appear intact. More superiorly, the anterior and posterior tibiofibular ligaments appear intact, as is the intermalleolar ligament. The tibiofibular syndesmosis is normal in width at 2 mm or less. The peroneus longus and brevis tendons demonstrate normal location and morphology. Adjacent bony peroneal tubercle and retrotrochlear prominence are normal in size. The sinus tarsi demonstrates normal fatty signal, without edema, fibrosis, or cyst formation. Visualized sinus tarsi components (cervical ligament, interosseous talocalcaneal ligament, roots of the inferior extensor retinaculum) appear normal. The calcaneonavicular and calcaneocuboid components of the bifurcate ligament appear intact. The dorsal calcaneocuboid ligament appears intact. Anterior structures: The tibialis anterior, extensor hallucis longus, and extensor digitorum longus tendons appear intact. The dorsal talonavicular ligament appears intact. Posterior and plantar structures: Achilles tendon is intact. Medial band plantar fasciitis at the calcaneal attachment with adjacent soft tissue edema. IMPRESSION: 3 mm heterotopic ossification versus loose body seen in the region of the deep fibers of the deltoid ligament complex. This implies (likely chronic) ligamentous sprain. Minimal posterior tibialis tenosynovitis. Medial band plantar fasciitis. Dictated by: Carl Melendez M.D. on 04/25/2019 at 9:24 Approved by: Carl Melendez M.D. on 04/25/2019 at 9:33
== END ==
PROVIDERS: PCP Nurse Practitioner; Visit Provider Nurse Practitioner
DX: R93.89 Abnormal findings on diagnostic imaging of other specified body structures (principal); M25.551 Pain in right hip; S73.191A Other sprain of right hip, initial encounter; M72.2 Plantar fascial fibromatosis; G89.29 Other chronic pain; Z87.81 Personal history of (healed) traumatic fracture
CPT/HCPCS: 73721

== ENCOUNTER → 2020-05-03 08:54 | Outpatient (CLI) | payer OTHER, MEDICAID, SELFPAY ==
[2020-05-03 10:13] LABS: Add Manual Diff / Slide Review NO; Basophils Absolute Auto 0 /uL (0-100); Basophils Percent Auto 0.8 % (0-2); Eosinophils Absolute Auto 200 /uL (0-450); Eosinophils Percent Auto 3.2 % (2-4); Hematocrit 42.7 % (41-53); Hemoglobin 14.6 g/dL (13.5-17.5); Lymphocytes Absolute Auto 2500 /uL (1100-4500); Lymphocytes Percent Auto 44.7 % (25-40); Mean Corpuscular HGB Conc 34.2 % (30-36); Mean Corpuscular Hemoglobin 29.7 PG (26-34); Mean Corpuscular Volume 86.9 fL (80-100); Monocytes Absolute Auto 500 /uL (0-900); Monocytes Percent Auto 8.3 % (3-14); Neutrophils Absolute Auto 2400 /uL (1500-7000); Platelet Count 309 X10^3/uL (150-400); Red Blood Cell Count 4.91 X10^6/uL (4.5-5.9); Red Cell Distribution Width 12.5 % (11.6-14.8); White Blood Cell Count 5.7 X10^3/uL (4.5-11.0)
[2020-05-03 10:19] LABS: Alanine Aminotransferase 23 IU/L (<50); Albumin 4.4 g/dL (3.5-5.0); Albumin Globulin Ratio 1.6 (1.0-2.8); Alkaline Phosphatase 63 U/L (38-126); Aspartate Aminotransferase 28 IU/L (17-59); BUN Creatinine Ratio 18.2 (6-22); Bilirubin Total 0.5 mg/dL (0.2-1.3); Blood Urea Nitrogen 14 mg/dL (9-20); Calcium 9.4 mg/dL (8.4-10.2); Carbon Dioxide 29 mmol/L (22-32); Chloride 102 mmol/L (98-107); Cholesterol 166 mg/dL (140-199); Estimated Glomerular Filt Rate > 60.0 mL/min (>60); Globulin 2.7 g/dL (1.7-4.1); Glucose 89 mg/dL (70-100); HDL Cholesterol 38 mg/dL (40-60); HEMOLYSIS < 15 (0-50); LDL Cholesterol Calculated 110 mg/dL (<100); Potassium 4.7 mmol/L (3.4-5.1); Sodium 137 mmol/L (137-145); Total Protein 7.1 g/dL (6.3-8.2); Triglycerides 88 mg/dL (35-150)
[2020-05-03 10:32] LABS: Free T3, Triiodothyronine Free 3.69 pg/mL (2.77-5.27); Free T4, Direct Thyroxine 0.83 ng/dL (0.78-2.19)
[2020-05-03 10:46] LABS: Thyroid Stimulating Hormone 2.45 uIU/mL (0.47-4.68)
== END ==
PROVIDERS: PCP Nurse Practitioner; Referring Provider Nurse Practitioner; Visit Provider Nurse Practitioner
DX: L65.9 Nonscarring hair loss, unspecified (principal); R10.9 Unspecified abdominal pain; R14.0 Abdominal distension (gaseous); R19.7 Diarrhea, unspecified; R53.83 Other fatigue
CPT/HCPCS: 36415; 80053; 80061; 84439; 84443; 84481; 85025

== ENCOUNTER → 2021-12-24 12:46 | Outpatient (CLI) | payer OTHER, MEDICAID, SELFPAY ==
--- NOTE | 2021-12-24 | DI.RAD.S_ITS ---
PROCEDURE: XR KNEE RT 3V INDICATIONS: Pain in right knee TECHNIQUE: 3 views of the knee were acquired. COMPARISON: None. FINDINGS: Bones: No fractures or dislocations. No suspicious bony lesions. Soft tissues: Small suprapatellar joint effusion. No suspicious soft tissue calcifications. IMPRESSION: Small suprapatellar joint effusion. No right knee fracture or dislocation. Dictated by: Patrick Amin M.D. on 12/24/2021 at 15:34 Approved by: Patrick Amin M.D. on 12/24/2021 at 15:35
== END ==
PROVIDERS: PCP Nurse Practitioner; Referring Provider Physician Assistant; Visit Provider Physician Assistant
DX: M25.561 Pain in right knee (principal); M25.461 Effusion, right knee
CPT/HCPCS: 73562

== ENCOUNTER → 2022-01-05 17:06 | Outpatient (CLI) | payer OTHER, MEDICAID, SELFPAY ==
--- NOTE | 2022-01-05 17:07 | DI.MRI.S_ITS ---
PROCEDURE: MR KNEE RT WO CON INDICATIONS: Unspecified internal derangement of right knee TECHNIQUE: Noncontrast sagittal PD fast spin echo and T2 fast spin echo with fat saturation, sagittal 3-D FLASH with fat saturation; coronal T1 spin echo and PD fast spin echo with fat saturation, and axial PD fast spin echo with fat saturation through the knee. COMPARISON: [facility], CR, XR KNEE RT 3V, 12/24/2021, 12:39. FINDINGS: Image quality: Excellent. Menisci: The medial and lateral menisci demonstrate normal morphology and internal signal. The meniscal root ligaments appear intact. Cruciate ligaments: The anterior and posterior cruciate ligaments appear intact. Medial structures: The medial collateral ligament appears intact. The semimembranosus tendon insertions and meniscocapsular junction appear intact. Visualized portions of the pes anserinus tendons appear normal. No abnormal bursal fluid. Lateral structures: The lateral collateral ligament and the biceps femoris tendon appear intact. There is edema in the popliteus tendon at the musculotendinous junction (series 6, image 23; series 8, image 10), consistent with partial tear. Iliotibial band appears normal. Anterior structures: The quadriceps and patellar tendons appear intact. Patellar alignment is normal. No femoral trochlear dysplasia or ventral trochlear prominence. No edema in the infrapatellar fat pad. Bones and cartilage: No bone marrow contusions or fractures. The cartilage of the medial and lateral femorotibial compartments, as well as the patellofemoral compartment, appears normal in thickness. Joint space: There is small knee joint effusion. No Aguirre's cyst. Normal appearing synovial plicae are incidentally noted. IMPRESSION: 1. Partial tear of popliteus tendon at the musculotendinous junction. No tendon rupture or retraction. 2. There is a small knee joint effusion. Dictated by: Kulwinder Ferrera M.D. on 01/06/2022 at 9:02 Approved by: Kulwinder Ferrera M.D. on 01/06/2022 at 11:18
== END ==
PROVIDERS: PCP Nurse Practitioner; Referring Provider Physician Assistant; Visit Provider Physician Assistant
DX: M23.91 Unspecified internal derangement of right knee (principal); S76.811A Strain of other specified muscles, fascia and tendons at thigh level, right thigh, initial encounter; M25.461 Effusion, right knee
CPT/HCPCS: 73721